=== PATIENT | male | born 1965 | race Caucasian/White ===

== ENCOUNTER 2016-12-10 06:39 | Outpatient (CLI) | payer OTHER ==
[~2016-12-10] VITALS: Ht 182.9 cm; Wt 93.2 kg
[2016-12-10] MEDS ORDERED: GLUCOPHAGE500 MG PO (07:09)
[2016-12-10 07:10] LABS: BASOPHILS 0.3 % (0-2); HEMATOCRIT 40.3 % (42.0-54.0); HEMOGLOBIN 13.8 g/dL (13.5-17.5); IMMATURE GRANULOCYTES 0.3 % (0-5); LYMPHOCYTES 45.1 % (15-50); MCH 35.4 pg (26.0-34.0); MCHC 34.2 g/dL (31.0-37.0); MCV 103.3 fL (80.0-100.0); MEAN PLATELET VOLUME 11.5 fL (7.4-10.4); MONOCYTES 9.9 % (2-11); NEUTROPHILS 42.4 % (40-80); PLATELET COUNT 160 10x3/uL (130-400); RDW 13.3 % (11.5-14.5)
[2016-12-10] MEDS ORDERED: HYDROCODONE-APA1 TAB PO (07:10)
[2016-12-10] MEDS ORDERED: LEVOTHYROXINE200 MCG PO (07:10)
[2016-12-10] MEDS ORDERED: AMBIEN10 MG PO (07:10)
[2016-12-10] MEDS ORDERED: CELEXA40 MG PO (07:10)
[2016-12-10 07:14] VITALS: BP 136/83; Ht 182.9 cm; Wt 93.2 kg
[2016-12-10 07:25] LABS: CALC OSMOLALITY 281 mosm/kg (275-300); CALCIUM 8.2 mg/dL (8.5-10.1); CARBON DIOXIDE 28.2 mmol/L (21.0-32.0); CHLORIDE - SERUM 105 mmol/L (98-107); CREATININE - SERUM 1.1 mg/dL (0.6-1.3); GLUCOSE 102 mg/dL (74-106); POTASSIUM - SERUM 4.2 mmol/L (3.5-5.1); SODIUM 140 mmol/L (136-145); UREA NITROGEN 20 mg/dL (7-18); eGFR NON AFRICAN AMERICAN 75 mL/min (90-120)
[2016-12-10 07:26] LABS: APTT 36.5 SECONDS (22.8-39.4); INR 1.01 (0.85-1.17); PROTIME 13.1 SECONDS (11.6-15.0)
--- NOTE | 2016-12-10 10:34 | NUR ---
4658 SEE POST PROCEDURE CHECKLIST OR VITAL SIGNS. AT BEDSIDE.
--- NOTE | 2016-12-10 11:59 | NUR ---
SEE POST PROCEDURE SHEET FOR V/S
== END 2016-12-10 12:37 | disposition home or self-care (01) ==
LOC: D.OPS 06:39 → D.CT 09:00 → D.OPS 09:00
PROVIDERS: Specialist
DX: D46.9 Myelodysplastic syndrome, unspecified (principal); F17.200 Nicotine dependence, unspecified, uncomplicated; E11.9 Type 2 diabetes mellitus without complications; Z01.812 Encounter for preprocedural laboratory examination

== ENCOUNTER → 2017-04-01 17:11 | Outpatient (CLI) | payer OTHER ==
[2016-12-10 07:14] VITALS: BMI 27.8
[~2017-04-01 17:11] MED LIST: AMBIEN10 MG PO; CELEXA40 MG PO; GLUCOPHAGE500 MG PO; HYDROCODONE-APA1 TAB PO; LEVOTHYROXINE200 MCG PO; MOBIC7.5 MG PO; NICODERM C1 PATCH .1 TRANSDERM; ZITHROMAX TRI-500 MG PO
== END | disposition home or self-care (01) ==
LOC: D.CT 17:00
DX: M54.16 Radiculopathy, lumbar region (principal)

== ENCOUNTER 2017-04-01 20:32 | Inpatient (IN) | payer OTHER ==
[~2017-04-01] VITALS: Ht 182.9 cm; Wt 90.9 kg
--- NOTE | ~2017-04-01 | HEMODYNAMI ---
PATIENT:JT LOTT MEDICAL RECORD: [id number] : 67 LOCATION:D.MS [id number] ADMISSION DATE: 04/01/17 Generatedon:04/03/201713:28 Patient name: JT LOTT Patient #: [id number] SSN: DO B: 1965 Date of study: 04/03/2017 Page: Of Hemodynamic Procedure Report Patient Data Patient Demographics Procedure consent was obtained First Name: JT Gender: Male Last Name: KAYLIE : 1965 [facility] Initial: T Age: 51 year(s) Patient #: [id number] Race: Unknown Additional ID: [id number] Contact details Address: [address] [address] State: [place] City: [place] Zip code: [address] Admission Admission Data Admission Date: 04/01/2017 Admission Time: 23:17 Room #: [id number] Weight (lbs.): 200 Weight (kg.): 90.72 Procedure Procedure Types Cath Procedure Peripheral Cath Diagnostic Procedure Cath Peripheral Procedure Description Procedure Date Procedure Date: 04/03/2017 Procedure Start Time: 12:58 Procedure End Time: 13:27 Procedure Staff Name Function Mani Miles MD Performing Physician Breonna Escalante RT Monitor Charles Rey RT Scrub Annabel Noel RN Nurse Breonna Escalante RT Screw Down Procedure Data Cath Procedure Fluoroscopy Diagnostic fluoroscopy Total fluoroscopy Time: 1.9 time: 1.9 min min Diagnostic fluoroscopy Total fluoroscopy dose: 127 dose: 127 mGy mGy Procedure Medications Medication Administration Route Dosage Lidocaine 1% added to field 20 Oxygen NC 3 l/min Heparin Flush Bag added to field 1 bags (1000units/500ml NS) Versed I.V. 1 mg Fentanyl I.V. 50 mcg Versed I.V. 1 mg Fentanyl I.V. 50 mcg Hemodynamics Rest Heart Rate: 58 (bpm) Snapshots Pre Cath Intra NCS Post Cath Vital Signs Time Heart Resp SPO2 etCO2 NIBP (mmHg) Rhythm Pain Sedation Rate (ipm) (%) (mmHg) Status Level (bpm) 12:44:21 57 9 97 151/92(114) NSR 0 (11) 10(A) , No pain 12:48:35 61 12 98 47 157/99(118) NSR 0 (11) 10(A) , No pain 12:52:51 61 12 99 49.2 153/100(120) NSR 0 (11) 10(A) , No pain 12:57:07 61 12 99 48.4 151/100(118) NSR 0 (11) 10(A) , No pain 13:01:23 61 13 99 39.4 156/95(124) NSR 0 (11) 10(A) , No pain 13:05:41 60 12 96 46.2 151/96(118) NSR 0 (11) 10(A) , No pain 13:09:57 65 11 94 43.1 153/108(119) NSR 0 (11) 10(A) , No pain 13:14:13 63 13 93 47.6 170/114(155) NSR 0 (11) 10(A) , No pain 13:18:35 62 14 93 3.7 176/112(132) NSR 0 (11) 10(A) , No pain 13:22:49 62 9 93 20.1 156/96(116) NSR 0 (11) 10(A) , No pain 13:27:03 22.3 149/91(128) NSR 0 (11) 10(A) , No pain Medications Time Medication Route Dose Verified Delivered Reason Notes Effe ctiveness by by 12:44:02 Lidocaine 1% added 20ml Annabel Singleton for local to vial Bert Miles anesthetic field АЛЕКСАНДР ARREOLA 12:44:22 Oxygen NC 3 Annabel Annabel used for l/min Bert Noel RN plastics seasoner operator 12:44:45 Heparin Flush added 1 Annabel Mani used for Bag to bags Bert Miles procedure (1000units/500ml field АЛЕКСАНДР ARREOLA NS) 12:56:42 Versed I.V. 1 mg Mani Jin for Ginger Noel RN sedation 12:56:53 Fentanyl I.V. 50 Mani Annabel for mcg Ginger Noel RN sedation 13:04:27 Versed I.V. 1 mg Mani Jin for Ginger Noel RN sedation 13:04:34 Fentanyl I.V. 50 Mani Annabel for [facility] Ginger Noel RN sedation Procedure Log Time Note 11:21:35 Patient Weight : 200 lbs 12:26:11 Charles Rey RT (R) (CV) sent for patient. Start room use. 12:26:14 Time tracking: Regular hours 12:26:31 Plan of Care:Hemodynamics will remain stable., Cardiac rhythm will remain stable., Comfort level will be maintained., Respiratory function will remain adequate., Patient/ family verbilizes understanding of procedure., Procedure tolerated without complication., Recovers from procedure without complications.. 12:26:37 Patient received from Med/Surg to IR Alert and oriented. Tansferred to table in Prone position. 12:26:39 Correct patient and procedure confirmed by team. 12:26:40 Signed procedure consent form obtained from patient. 12:26:42 ECG and BP/O2 sat monitors applied to patient. 12:26:44 Full Disclosure recording started 12:26:45 - 12:26:49 H&P Date Dictated: 04/03/2017 Within 30 days and on chart.. 12:26:51 Pre-procedure instructions explained to patient. 12:26:51 Pre-op teaching completed and patient verbalized understanding. 12:26:53 Family in waiting room. 12:26:55 Patient NPO since Midnight. 12:27:02 Is the patient allergic to Iodine/contrast media? No. 12:27:04 Is patient on blood thinner?No 12:27:05 Patient diabetic? Yes. 12:27:08 If diabetic: On Metformin? Yes 12:27:21 If on Metformin: Last Dose? 03/31/2017 12:27:25 - 12::25 ----Pre-sedation anethsthesia assessment.---- 12::29 Previous problem with sedation/anesthesia? No ? 12::30 Snore? Yes 12:27:33 Sleep apnea? No 12:27:35 Deviated septum? No 12:27:36 Opens mouth fully? Yes 12:27:38 Sticks out tongue? Yes 12:27:46 Airway obstruction? No ? 12::51 Dentures? No ? 12:28:03 Patient pain scale 0/10 no pain. 12:28:13 IV patent on arrival in right forearm with 0.9% NaCl at [facility]. 12:43:16 Vital chart was started 12:43:17 Baseline sample Acquired. 12:43:22 - 12:43:35 Use device set IR Diagnostic 12:43:37 Sterile Angiographic Pack opened to sterile field. 12:43:38 Bag Decanter (2002) opened to sterile field. 12:44:02 Lidocaine 1% 20ml vial added to field was administered by Mani haley MD; for local anesthetic; 12:44:22 Oxygen 3 l/min NC was administered by Annabel Noel RN; used for procedure; 12:44:45 Heparin Flush Bag (1000units/500ml NS) 1 bags added to field was administered by Mani Miles MD; used for procedure; 12:55:31 Physician arrived 12:56:42 Versed 1 mg I.V. was administered by Annabel Noel RN; for sedation; 12:56:53 Fentanyl 50 mcg I.V. was administered by Annabel Noel RN; for sedation ; 12:57:49 --------ALL STOP TIME OUT------ 12:57:49 Final Timeout: patient, procedure, and site verified with staff and physician. All members of the team are in agreement. 12:58:00 Sedation plan: IV Moderate Sedation Medication:Versed, Fentanyl 12:58:08 Procedure started. 12:58:24 Local anesthetic to Lumbar area with Lidocaine 1% by Mani Miles MD.INITIAL ACCESS ONLY 13:04:27 Versed 1 mg I.V. was administered by Annabel Noel RN; for sedation; 13:04:34 Fentanyl 50 mcg I.V. was administered by Annabel Noel RN; for sedation ; 13:21:30 Procedure ended.(Physican Out) 13:25:27 Fluoroscopy time 01.90 minutes. 13:25:33 Fluoroscopy dose: 127 mGy 13:25:33 Flurop Dose total: 127 13:25:35 Sharps counted by scrub and verified 13:27:21 Procedure and supply charges have been captured, reviewed, submitted an d are correct. 13:27:28 Report given to Med/Surg. 13:27:34 Patient transfered to Med/Surg with Bed. 13:27:39 Procedure ended. 13:27:39 Full Disclosure recording stopped 13:27:41 End room use (Document Last) 13:28:06 Vital chart was stopped Device Usage Item Name Manufacture Quantity Catalog Hospital Part Current Minimal Lot# / Number Charge Number Stock Stock Serial# Code Sterile Cardinal 1 [id number] Angiographic Health Pack Bag Decanter Microtek 1 [id number] () DJZ. Signature Audit Tully Stage Time Signature Unsigned Intra-Procedure 04/03/2017 Breonna Escalante 1:28:01 PM RT(R) Signatures Monitor : Breonna Escalante RT Signature : Date : Time : [id number] [place] [address]
[~2017-04-01 20:32] MED LIST changes: -MOBIC7.5 MG PO; -NICODERM C1 PATCH .1 TRANSDERM; -ZITHROMAX TRI-500 MG PO
[2017-04-01 21:14] LABS: HEMATOCRIT 38.8 % (42.0-54.0); HEMOGLOBIN 13.3 g/dL (13.5-17.5); MCH 35.7 pg (26.0-34.0); MCHC 34.3 g/dL (31.0-37.0); MEAN PLATELET VOLUME 11.3 fL (7.4-10.4); PLATELET COUNT 167 10x3/uL (130-400); RBC 3.73 10x6/uL (4.20-6.10); RDW 13.5 % (11.5-14.5); WBC 3.7 10x3/uL (4.8-10.8)
[2017-04-01 21:24] LABS: ALBUMIN 3.7 g/dL (3.4-5.0); ALKALINE PHOSPHATASE 69 U/L (46-116); ALT (SGPT) 17 U/L (10-68); BILIRUBIN - TOTAL 0.52 mg/dL (0.2-1.3); CALC OSMOLALITY 278 mosm/kg (275-300); CALCIUM 8.3 mg/dL (8.5-10.1); CARBON DIOXIDE 29.7 mmol/L (21.0-32.0); CHLORIDE - SERUM 104 mmol/L (98-107); GLUCOSE 94 mg/dL (74-106); POTASSIUM - SERUM 3.9 mmol/L (3.5-5.1); PROTEIN - SERUM 6.5 g/dL (6.4-8.2); SODIUM 139 mmol/L (136-145); UREA NITROGEN 14 mg/dL (7-18); eGFR NON AFRICAN AMERICAN 84 mL/min (90-120)
[2017-04-01 21:31] LABS: APPEARANCE CLEAR (CLEAR); COLOR YELLOW (YELLOW); GLUCOSE NEGATIVE (NEGATIVE); KETONE NEGATIVE (NEGATIVE); NITRITE NEGATIVE (NEGATIVE); PROTEIN NEGATIVE (NEGATIVE); UROBILINOGEN NORMAL (NORMAL)
[2017-04-01 21:32] LABS: BILIRUBIN NEGATIVE (NEGATIVE)
[2017-04-01 22:32] LABS: ERYTHROCYTE SEDIMENTATION RATE 0 mm/hr (0-20)
[2017-04-01 22:34] LABS: EOSINOPHILS 4 % (0-7); LYMPHOCYTES 68 % (15-50); MONOCYTES 2 % (2-11); NEUTROPHILS 24 % (40-80); PLATELET ESTIMATE NORMAL
[2017-04-02] VITALS (7 sets, daily range): BP systolic 83–159; BP diastolic 50–91; Ht 182.9 cm; Wt 90.9 kg
--- NOTE | 2017-04-02 00:10 | NUR ---
RECEIVED TO FLOOR FROM ER, ORIENTED TO ROOM, CALL LIGHT IN REACH, BED LOWEST POSIITON, WILL CONTINUE TO MONITOR
[2017-04-02] MEDS ORDERED: ZITHROMAX TRI-500 MG PO (00:15)
[2017-04-02] MEDS ORDERED: MOBIC7.5 MG PO (00:16)
--- NOTE | 2017-04-02 07:48 | NUR ---
PT LYING IN BED STATED PAIN IS AT A 10 IN BACK AND GROIN. GAVE PT PRN PAIN MEDS. PT STATED HAD MRI LAST NIGHT IN ER, NO REPORT SEEN ON CHART, CALLED MEDICAL IMAGING SPOKE WITH KEIKO, PRINTING REPORT FOR ME TO ATTACH TO PT CHART. BED IN LOW POSITION, CALL LIGHT IN REACH PT NPO PENDING ORDERS FROM DR GARCIA
[2017-04-02 09:43] LABS: BASOPHILS 0.3 % (0-2); EOSINOPHILS 1.8 % (0-7); HEMATOCRIT 37.5 % (42.0-54.0); HEMOGLOBIN 12.7 g/dL (13.5-17.5); IMMATURE GRANULOCYTES 0.3 % (0-5); LYMPHOCYTES 56.5 % (15-50); MCH 35.3 pg (26.0-34.0); MCHC 33.9 g/dL (31.0-37.0); MCV 104.2 fL (80.0-100.0); MEAN PLATELET VOLUME 11.1 fL (7.4-10.4); MONOCYTES 10.1 % (2-11); PLATELET COUNT 147 10x3/uL (130-400); RDW 13.4 % (11.5-14.5); WBC 3.4 10x3/uL (4.8-10.8)
[2017-04-02 09:59] LABS: ALBUMIN 3.2 g/dL (3.4-5.0); ALKALINE PHOSPHATASE 63 U/L (46-116); ALT (SGPT) 18 U/L (10-68); CALC OSMOLALITY 279 mosm/kg (275-300); CARBON DIOXIDE 29.3 mmol/L (21.0-32.0); CHLORIDE - SERUM 106 mmol/L (98-107); CREATININE - SERUM 0.8 mg/dL (0.6-1.3); GLUCOSE 92 mg/dL (74-106); POTASSIUM - SERUM 4.2 mmol/L (3.5-5.1); PROTEIN - SERUM 5.7 g/dL (6.4-8.2); SODIUM 140 mmol/L (136-145); UREA NITROGEN 15 mg/dL (7-18); eGFR NON AFRICAN AMERICAN > 90 mL/min (90-120)
--- NOTE | 2017-04-02 11:32 | NUR ---
PT COMPLAINS OF EXCRUCIATING PAIN FROM LT LOWER QUADRANT THAT TRAVELS DOWN TO INNER THIGH, BURNING SENSATION, WORSENED YESTERDAY AFTER CONTRAST, ADMINISTERED PRN PAIN MEDS. PT STATED HE DID SEE DR CASTELLANOS ABOUT 4 WEEKS AGO TO SEE IF PAIN WAS COMING FROM NECK AREA AND HAD FORGOTTEN TO MENTION TO WHEN SHE CAME IN THIS MORNING. ADVISED WILL MAKE A NOTE IN CASE I DID NOT SEE WINSTON DUNCAN HAND. NO OTHER NEEDS AT THIS TIME
--- NOTE | 2017-04-02 12:10 | NUR ---
PT RESTING IN ROOM, WAITING FOR LUNCH, DENIES NEEDS.
[2017-04-03] VITALS (11 sets, daily range): BP systolic 120–141; BP diastolic 53–93
--- NOTE | 2017-04-03 04:16 | NUR ---
PT IN BED RETURNING FROM BATHROOM. NO NEEDS ARE VOICED. VISITOR AT BEDSIDE. SIDE RAILS X 2. BED LOW. CALL LIGHT IN REACH.
[2017-04-03 06:16] LABS: BASOPHILS 0 % (0-2); EOSINOPHILS 1.6 % (0-7); HEMATOCRIT 36.1 % (42.0-54.0); HEMOGLOBIN 12.5 g/dL (13.5-17.5); LYMPHOCYTES 46.4 % (15-50); MCH 35.5 pg (26.0-34.0); MCHC 34.6 g/dL (31.0-37.0); MCV 102.6 fL (80.0-100.0); MEAN PLATELET VOLUME 11.4 fL (7.4-10.4); MONOCYTES 10.4 % (2-11); NEUTROPHILS 41.6 % (40-80); PLATELET COUNT 157 10x3/uL (130-400); RBC 3.52 10x6/uL (4.20-6.10); RDW 13.3 % (11.5-14.5); WBC 3.7 10x3/uL (4.8-10.8)
[2017-04-03 06:39] LABS: ALBUMIN 3.3 g/dL (3.4-5.0); ALKALINE PHOSPHATASE 59 U/L (46-116); ALT (SGPT) 15 U/L (10-68); BILIRUBIN - TOTAL 0.58 mg/dL (0.2-1.3); CALC OSMOLALITY 277 mosm/kg (275-300); CALCIUM 7.9 mg/dL (8.5-10.1); CARBON DIOXIDE 30.9 mmol/L (21.0-32.0); CHLORIDE - SERUM 104 mmol/L (98-107); CREATININE - SERUM 0.8 mg/dL (0.6-1.3); GLUCOSE 94 mg/dL (74-106); POTASSIUM - SERUM 4.1 mmol/L (3.5-5.1); PROTEIN - SERUM 5.8 g/dL (6.4-8.2); SODIUM 140 mmol/L (136-145); eGFR NON AFRICAN AMERICAN > 90 mL/min (90-120)
[2017-04-03 07:01] LABS: UREA NITROGEN 11 mg/dL (7-18)
[2017-04-03 07:04] LABS: C-REACTIVE PROTEIN < 0.2 mg/dL (0.0-0.9)
[2017-04-03 07:26] LABS: ERYTHROCYTE SEDIMENTATION RATE 2 mm/hr (0-20)
--- NOTE | 2017-04-03 08:00 | NUR ---
PATIENT ALERT/ORIENT X4. IN ROOM WITH PATIENT. PATIENT USING CALL LIGHT FOR NEEDS. NORMAL SALINE RUNNING AT 75CC/HR. DIALUDID CULINARY INTERNSHIP PUMP FOR PAIN
[2017-04-03 08:04] LABS: INR 1.06 (0.85-1.17); PROTIME 13.4 SECONDS (11.6-15.0)
--- NOTE | 2017-04-03 12:12 | NUR ---
pt seen for lining feller blindstitch note-states pain is currently 6/10-uses manager orange as needed. lungs clear bilat. headed per bed to radiology for disc aspiration. family at bedside
--- NOTE | 2017-04-03 12:50 | NUR ---
PATIENT TAKEN TO RADIOLOGY FOR COMPUTED TOMOGRAPHY GUIDED OF BIOPSY AND CULTURE OF LUMBER THREE/FOUR DISC WITH MODERATE SEDATION.
--- NOTE | 2017-04-03 13:48 | NUR ---
PATIENT RETURNED FROM PROCEEDURE. VITAL SIGNES TAKEN. PATIENT ALERT/ORIENT. DENIES ANY PAIN/DISC AT THIS TIME.
--- NOTE | 2017-04-03 14:21 | NUR ---
VITAL SIGNES WNL. PATIENT IS ON BED REST WITH BRP.
--- NOTE | 2017-04-03 15:10 | NUR ---
Patient Name: JT LOTT Admission Status: ER Accout number: [id number] Admission Date: 04-01-2017 : 1965 Admission Diagnosis:DISCITIS, UNSPECIFIED, LUMBAR REGION Attending: NICO ZAMARRIPA Current LOS: 2 Anticipated DC Date: 04-05-2017 Planned Disposition: Home Primary Insurance: [facility] PPO Discharge Planning Comments: CM MET WITH PATIENT AND GIRLFRIEND (GEOVANNI) FOR DISCHARGE NEEDS AND PLANS. PATIENT STATED THERE ARE NO STEOPS OR STAIRS AT HIS HOME AND HIS GIRLFRIEND WILL DRIVE HIM HOME AT DISCHARGE. PATIENT STATED HE IS INDEPENDENT WITH HIS CARE AND HAS CRUTCHES, SHOWER BENCH, AND GLUCOMETER AT HOME. PATIENTS PCP IS DR. RAE AND USES [facility]. PATIENT IS REFUSING HOME HEALTH AT THIS TIME. CM WILL CONTINUE TO FOLLOW PATIENT WITH D/C NEEDS AND PLANS. PCP [facility]- [phone] GEOVANNI () [phone] Saas Architect: Judit Nichols Is the patient Alert and Oriented? Yes 0 * How many steps to enter\exit or inside your home? 0 0 * PCP DR. RAE 0 * Pharmacy [facility] 0 * Preadmission Environment Home with Family 0 * ADLs Independent 0 * Equipment Crutch Glucometer Shower Chair 0 * List name and contact numbers for known caregivers / representatives who currently or will assist patient after discharge: GEOVANNI () [phone] 0 * Community resources currently utilized None 0 * Additional services required to return to the preadmission environment? Yes 0 * Can the patient safely return to the preadmission environment? Yes 0 * Has this patient been hospitalized within the prior 30 days at any hospital? No 0 Grand Total: 0
[2017-04-04 00:37] VITALS: BP 133/71
[2017-04-04 05:00] VITALS: BP 138/70
[2017-04-04 05:47] LABS: HEMATOCRIT 38.1 % (42.0-54.0); HEMOGLOBIN 13.1 g/dL (13.5-17.5); MCH 35.2 pg (26.0-34.0); MCHC 34.4 g/dL (31.0-37.0); MCV 102.4 fL (80.0-100.0); MEAN PLATELET VOLUME 11.3 fL (7.4-10.4); PLATELET COUNT 152 10x3/uL (130-400); RBC 3.72 10x6/uL (4.20-6.10); RDW 13.2 % (11.5-14.5); WBC 2.9 10x3/uL (4.8-10.8)
[2017-04-04 06:35] LABS: ALBUMIN 3.3 g/dL (3.4-5.0); ALKALINE PHOSPHATASE 78 U/L (46-116); CALCIUM 8.3 mg/dL (8.5-10.1); CARBON DIOXIDE 29.7 mmol/L (21.0-32.0); CHLORIDE - SERUM 104 mmol/L (98-107); CREATININE - SERUM 0.9 mg/dL (0.6-1.3); GLUCOSE 117 mg/dL (74-106); POTASSIUM - SERUM 3.8 mmol/L (3.5-5.1); SODIUM 139 mmol/L (136-145); eGFR NON AFRICAN AMERICAN > 90 mL/min (90-120)
[2017-04-04 06:36] LABS: ALT (SGPT) 21 U/L (10-68); CALC OSMOLALITY 279 mosm/kg (275-300); UREA NITROGEN 14 mg/dL (7-18)
[2017-04-04 06:39] LABS: ELLIPTOCYTES OCC; EOSINOPHILS 6 % (0-7); LYMPHOCYTES 61 % (15-50); MONOCYTES 7 % (2-11); NEUTROPHILS 22 % (40-80); PLATELET ESTIMATE NORMAL; ROULEAUX OCC
[2017-04-04 08:22] VITALS: BP 160/99
[2017-04-04 11:53] VITALS: BP 127/75
[2017-04-04 16:19] VITALS: BP 147/86
[2017-04-04 20:00] VITALS: BP 166/89
[2017-04-05] VITALS: BP 167/91
[2017-04-05 04:00] VITALS: BP 158/91
[2017-04-05 06:33] LABS: BASOPHILS 0.3 % (0-2); EOSINOPHILS 2.2 % (0-7); IMMATURE GRANULOCYTES 0.6 % (0-5); LYMPHOCYTES 53.3 % (15-50); MCH 34.9 pg (26.0-34.0); MCHC 34.2 g/dL (31.0-37.0); MCV 102.2 fL (80.0-100.0); MEAN PLATELET VOLUME 10.9 fL (7.4-10.4); MONOCYTES 7.4 % (2-11); NEUTROPHILS 36.2 % (40-80); PLATELET COUNT 147 10x3/uL (130-400); RBC 3.72 10x6/uL (4.20-6.10); RDW 13.4 % (11.5-14.5); WBC 3.2 10x3/uL (4.8-10.8)
[2017-04-05 06:55] LABS: ALBUMIN 3.5 g/dL (3.4-5.0); ALKALINE PHOSPHATASE 67 U/L (46-116); ALT (SGPT) 23 U/L (10-68); BILIRUBIN - TOTAL 0.61 mg/dL (0.2-1.3); CALC OSMOLALITY 276 mosm/kg (275-300); CALCIUM 8.3 mg/dL (8.5-10.1); CARBON DIOXIDE 33.3 mmol/L (21.0-32.0); CHLORIDE - SERUM 103 mmol/L (98-107); CREATININE - SERUM 0.9 mg/dL (0.6-1.3); GLUCOSE 99 mg/dL (74-106); PROTEIN - SERUM 6.2 g/dL (6.4-8.2); SODIUM 138 mmol/L (136-145); UREA NITROGEN 15 mg/dL (7-18); eGFR NON AFRICAN AMERICAN > 90 mL/min (90-120)
[2017-04-05 08:18] VITALS: BP 135/84
[2017-04-05 11:40] VITALS: BP 127/83
[2017-04-05] MEDS ORDERED: NICODERM C1 PATCH .1 TRANSDERM (12:38)
[2017-04-05] MEDS ORDERED: HYDROCODONE-APA1 TAB PO (12:41)
--- NOTE | 2017-04-05 13:43 | NUR ---
SPOKE WITH SEE NURSE MESSAGE.
--- NOTE | 2017-04-05 13:52 | NUR ---
CM REASSESSMENT NOTE: PATIENT STATED HE IS DISCHARGING TODAY AND HIS GIRLFRIEND IS DRIVING HIM HOME. PATIENT REFUSED HOME HEALTH AND HAD NO OTHER NEEDS FOR DISCHARGE.
[2017-04-05 14:19] LABS: FUNGUS STAIN Final report (())
[2017-04-05 15:21] LABS: HISTOPLASMA GAL MANNAN AG SER <0.5 (<0.5 ng/mL)
--- NOTE | 2017-04-05 15:50 | NUR ---
D/C IV WITH CATHETER INTACT.
--- NOTE | 2017-04-05 15:59 | NUR ---
DISCHARGE INSTRUCTIONS COMPLETED WITH PATIENT. PATIENT AND VERBALIZED UNDERSTANDING. PATIENT'S STATED "I AM CONCERNED ABOUT HIS NUMBNESS AND TINGLING IN HIS GROIN AREA. I FEEL LIKE NO ONE IS CONCERNED ABOUT IT AND I HAVE BEEN TELLING EVERYONE ABOUT IT THE WHOLE TIME HE HAS BEEN HERE. IT HAS BEEN GOING ON SINCE HE FIRST GOT HERE BEFORE THE BIOPSY." ASKED PATIENT AND HIS IF THEY WOULD LIKE TO TALK TO , THEY SAID YES. CAME OUT OF PATIENT'S ROOM MACKENZIE HENRY AT THE DESK, TOLD HER THE PATIENT WANTS TO TALK TO ABOUT NUMBNESS AND TINGLING IN HIS GROIN, SHE STATED "I ALREADY TALKED TO HIM ABOUT IT. THAT IS NOTHING NEW. HE HAS HAD THE NUMBNESS AND TINGLING IN HIS GROIN THE ENTIRE TIME HE HAS BEEN HERE. AND ARE AWARE OF IT AND THEY THINK IT IS FROM THE DISCITIS. HE IS GOING TO FOLLOW UP WITH NEXT WEEK IN CLINIC." TOLD THE PATIENT AND HIS "MACKENZIE SAID THE DOCTORS ARE AWARE OF THE NUMBNESS AND TINGLING, SHE SAID THEY BELIEVE IT IS FROM THE DISCITIS." THE PATIENT STATED "YEAH, THAT IS WHAT I FIGURED, IT IS FROM THE PRESSURE." I STATED "IF YOUR SYMPTOMS WORSEN OR IF YOU START HAVING CHILLS OR A FEVER BE SURE TO CALL OR , OR COME TO THE ER." THEY VERABLIZED UNDERSTANDING AND AGREED.
--- NOTE | 2017-04-05 16:05 | NUR ---
PATIENT LEFT VIA WHEELCHAIR.
[2017-04-05 16:08] VITALS: BP 141/83
[2017-04-05 16:11] LABS: AFB SPECIMEN PROCESSING Not Indicated (())
[2017-04-09 15:19] LABS: BRUCELLA IGG Negative (Negative); BRUCELLA IGM Negative (Negative)
[2017-05-03 15:20] LABS: FUNGUS MYCOLOGY CULTURE Final report (())
[2017-05-22 11:18] LABS: ACID FAST CULTURE Negative (()); ACID FAST SMEAR Negative (())
== END 2017-04-05 16:00 | disposition home or self-care (01) | DRG 478 ==
LOC: D.ER 20:32 → D.MS 23:17
PROVIDERS: Family Medicine; Radiology Diagnostic Radiology; Student in an Organized Health Care Education/Training Program; ADMIT Family Medicine
PROC: 0Q903ZX Drainage of Lumbar Vertebra, Percutaneous Approach, Diagnostic (ICD-10-PCS; principal; 2017-04-03 12:30)
DX: M46.46 Discitis, unspecified, lumbar region (principal); M46.26 Osteomyelitis of vertebra, lumbar region; E11.65 Type 2 diabetes mellitus with hyperglycemia; F41.8 Other specified anxiety disorders; D46.9 Myelodysplastic syndrome, unspecified

== ENCOUNTER → 2017-05-01 10:37 | Outpatient (CLI) | payer OTHER ==
[2017-04-02 00:56] VITALS: BMI 27.2
[~2017-05-01 10:37] MED LIST changes: +MOBIC7.5 MG PO; +NICODERM C1 PATCH .1 TRANSDERM; +ZITHROMAX TRI-500 MG PO
== END | disposition home or self-care (01) ==
LOC: D.MRI 10:30
DX: M46.26 Osteomyelitis of vertebra, lumbar region (principal)

== ENCOUNTER 2017-12-03 10:39 | Day surgery (SDC) | payer MEDICAID ==
[~2017-12-03] VITALS: Ht 182.9 cm; Wt 87.1 kg
[2017-12-03] VITALS (8 sets, daily range): BP systolic 106–119; BP diastolic 64–78; BMI 26.5; BMI 25.7
--- NOTE | ~2017-12-03 | OP ---
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 POSTOPERATIVE DIAGNOSIS: Left C3-C4 and C4-C5 foraminal stenosis and cervical radiculopathy at left C4 and C5. SURGEON: Brandi Tesfaye MD DESCRIPTION AND TECHNIQUE: After induction of general endotracheal anesthesia, the patient was placed in Rankin head pin and was rolled prone on chest and hip rolls. Neck was prepped and draped in usual sterile fashion. Fluoroscopic x-ray and spinal needle localized to the C3-C4 interspace on the left side. A stab incision was created with #11 blade. Using Bovie cautery, a subperiosteal dissection took place to expose the spinous processes and lamina of C3, C4, and C5 on the left side. Level was confirmed with fluoroscopic x-ray. A foraminotomy, medial facetectomy was carried out with Midas-Marcio drill and microscope illumination at C3-4 and C4-5 on the left. Hypertrophied ligamentum flavum was removed with Cloward rongeurs. This decompressed at the left C4 and C5 nerve roots. The C5 nerve root was compressed ventrally by a calcified osteophyte. This could not be removed posteriorly with #11 blade and pituitary rongeurs. However, the nerve root was felt to be decompressed well. Meticulous hemostasis was maintained throughout the wound. The wound was irrigated with copious amounts of Ancef irrigant solution. The fascia was closed with 2-0 Vicryl suture, the subdermal layer was closed with 3-0 Vicryl suture. Skin was closed with katy. A sterile dressing was applied to the wound. The patient was awakened in good condition, taken to recovery. All counts were reported as correct. Estimated blood loss was minimal. TRANSINT:[id number] Voice Confirmation ID: [id number] DOCUMENT ID: [id number] BRANDI TESFAYE MD at 1707 CC: [id number] DICTATION DATE: 12/03/17 184 GREEN BUILDING DESIGN SPECIALIST: 12/03/172021 [facility] 12/04/[address] [facility] [address] [place] [address]
[2017-12-03 11:16] LABS: CALC OSMOLALITY 284 mosm/kg (275-300); CALCIUM 8.3 mg/dL (8.5-10.1); CARBON DIOXIDE 31.7 mmol/L (21.0-32.0); CHLORIDE - SERUM 106 mmol/L (98-107); CREATININE - SERUM 0.8 mg/dL (0.6-1.3); GLUCOSE 101 mg/dL (74-106); POTASSIUM - SERUM 3.9 mmol/L (3.5-5.1); SODIUM 142 mmol/L (136-145); UREA NITROGEN 17 mg/dL (7-18); eGFR NON AFRICAN AMERICAN > 90 mL/min (90-120)
[2017-12-03 11:17] LABS: HEMATOCRIT 35.3 % (42.0-54.0); HEMOGLOBIN 12.3 g/dL (13.5-17.5); MCH 35.2 pg (26.0-34.0); MCHC 34.8 g/dL (31.0-37.0); MCV 101.1 fL (80.0-100.0); MEAN PLATELET VOLUME 12.4 fL (7.4-10.4); RBC 3.49 10x6/uL (4.20-6.10); RDW 13.8 % (11.5-14.5); WBC 2.6 10x3/uL (4.8-10.8)
[2017-12-04] VITALS (9 sets, daily range): BP systolic 98–108; BP diastolic 57–67; Ht 182.9 cm; Wt 87.1 kg
[2017-12-04 05:00] LABS: CALC OSMOLALITY 281 mosm/kg (275-300); CALCIUM 7.8 mg/dL (8.5-10.1); CARBON DIOXIDE 24.6 mmol/L (21.0-32.0); CHLORIDE - SERUM 107 mmol/L (98-107); GLUCOSE 123 mg/dL (74-106); SODIUM 140 mmol/L (136-145); UREA NITROGEN 18 mg/dL (7-18); eGFR NON AFRICAN AMERICAN 84 mL/min (90-120)
[2017-12-04 05:01] LABS: POTASSIUM - SERUM 4.7 mmol/L (3.5-5.1)
[2018-01-01] MEDS ORDERED: NORCO 10-325 TA1 TAB PO (13:08)
== END 2017-12-04 10:13 | disposition home or self-care (01) ==
LOC: OBSVTIME → D.SDCHOLD 10:39 → D.OPS 10:39 → D.SDCHOLD 10:39 → D.ICU 10:39 → D.SDCHOLD 13:30 → D.ICU 18:38 → D.SDCHOLD 18:38 → OBSVTIME 19:46 → D.OPS 12-04 10:13 → D.ICU 12-04 10:13
PROVIDERS: Anesthesiology; Neurological Surgery
DX: M48.02 Spinal stenosis, cervical region (principal); M54.12 Radiculopathy, cervical region; Z01.812 Encounter for preprocedural laboratory examination

== ENCOUNTER 2018-01-02 05:19 | Day surgery (SDC) | payer MEDICAID ==
[~2018-01-02] VITALS: Ht 182.9 cm; Wt 91.7 kg
[2018-01-02] VITALS (17 sets, daily range): BP systolic 121–140; BP diastolic 67–91; Ht 182.9 cm; Wt 91.7 kg
--- NOTE | ~2018-01-02 | OP ---
PATIENT NAME: JT LOTT MEDICAL RECORD: [id number] :[birth year] LOCATION:[facility].07 ADMISSION DATE: SURGEON: BRANDI TESFAYE MD DATE OF OPERATION: 01/02/2018 PREOPERATIVE DIAGNOSIS: Failed fusion at C5-C6. PROCEDURE: Redo anterior cervical discectomy and fusion at C5-C6, removal of anterior cervical plate and screws at C5-C6 and C6-C7, Zavation anterior cervical plate and screws, Jerri bone stem cells, PEEK interbody cage, removal of osteophytes. SURGEON: Brandi Tesfaye MD DESCRIPTION AND TECHNIQUE: After induction of general endotracheal anesthesia, the patient was positioned supine on the operating table. Neck was prepped and draped in usual sterile fashion. Fluoroscopic x-ray and freer localized the C5-C6, C6-C7 anterior cervical plate and screws. As noted previously one of the screws from the vertebral body of C5 was fractured, but nondisplaced. After induction of general endotracheal anesthesia, a Romulus dissector localized the anterior cervical plate and screws. A transverse skin incision was carried out from the midline to the sternocleidomastoid muscle. The platysma was divided with Bovie cautery. Using blunt and sharp dissection with Metzenbaum scissors, I proceeded in avascular plane medial to the carotid sheath. Following this, the anterior cervical plate was identified. This was dissected free of scar tissue. The screw heads were backed out with a hex head screwdriver. Plate and screws were removed in their entirety except for a fractured screw fragment that was left behind in the C5 vertebral body. [place] distracting pins were placed in the bodies of C5 and C6. The previous discectomy was incised and the scar tissue was removed with pituitary rongeurs and curettes. Endplates were repaired with curettes and the Midas Marcio drill. Posteriorly, scar tissue was removed from the dura. Foraminotomy was carried out on both sides. The dura was decompressed over both neural foramina. A PEEK interbody cage was placed in the C5-C6 interspace under distraction. Prior to this, it was filled with Jerri bone stem cells. A Zavation anterior cervical plate and screws 4-hole plate was used to span the C5-C6 interspace. Two 18 mm screws and two 16-mm screws were placed through the holes in the plate. Locking cams were tightened down over the screw heads. Meticulous hemostasis was maintained throughout the wound. The wound was irrigated with copious amounts of Ancef irrigant solution. The platysma and subdermal layer closed with interrupted 3-0 Vicryl suture. The skin was reapproximated with Prineo skin dressing. The patient was awakened in good condition, taken to recovery. All counts were reported as correct. Estimated blood loss was minimal. TRANSINT:[id number] Voice Confirmation ID: [id number] DOCUMENT ID: [id number] OPERATIVE REPORT [id number] JT LOTT JOHN MD at 1406 CC: [id number] DICTATION DATE: 01/02/18 1042 RECONCILIATION MACHINE OPERATOR: 01/02/18 [address] [place] [address]
[~2018-01-02 05:19] MED LIST changes: +NORCO 10-325 TA1 TAB PO
[2018-01-02 05:35] LABS: HEMATOCRIT 35.5 % (42.0-54.0); HEMOGLOBIN 12.1 g/dL (13.5-17.5); MCHC 34.1 g/dL (31.0-37.0); MCV 102.6 fL (80.0-100.0); MEAN PLATELET VOLUME 11.7 fL (7.4-10.4); RBC 3.46 10x6/uL (4.20-6.10); RDW 14.8 % (11.5-14.5); WBC 3.2 10x3/uL (4.8-10.8)
[2018-01-02 05:51] LABS: CALC OSMOLALITY 281 mosm/kg (275-300); CALCIUM 8.1 mg/dL (8.5-10.1); CARBON DIOXIDE 28.3 mmol/L (21.0-32.0); CHLORIDE - SERUM 104 mmol/L (98-107); GLUCOSE 92 mg/dL (74-106); SODIUM 141 mmol/L (136-145); UREA NITROGEN 16 mg/dL (7-18); eGFR NON AFRICAN AMERICAN 84 mL/min (90-120)
[2018-01-03] VITALS (8 sets, daily range): BP systolic 123–154; BP diastolic 63–82
== END 2018-01-03 14:00 | disposition home or self-care (01) ==
LOC: D.OPS 05:19 → D.CVICU 05:19 → D.OPS 07:30 → D.PAN 07:30 → D.CVICU 11:01 → D.OPS 01-03 14:00 → D.CVICU 01-03 15:06 → D.OPS 01-03 15:06 → D.CVICU 01-03 15:07 → D.OPS 01-03 15:07
PROVIDERS: Anesthesiology
DX: T81.89XA Other complications of procedures, not elsewhere classified, initial encounter (principal); M25.78 Osteophyte, vertebrae; M50.121 Cervical disc disorder at C4-C5 level with radiculopathy; Z01.812 Encounter for preprocedural laboratory examination

== ENCOUNTER → 2018-04-30 09:30 | Outpatient (CLI) | payer MEDICAID ==
[2018-01-02 12:56] VITALS: BMI 27.2
== END | disposition home or self-care (01) ==
LOC: D.MRI 09:30
DX: M54.16 Radiculopathy, lumbar region (principal)

== ENCOUNTER 2019-11-09 17:25 | Emergency (ER) | payer MEDICAID ==
[~2019-11-09] VITALS: Ht 182.9 cm; Wt 80.0 kg
[2019-11-09 17:35] VITALS: Ht 182.9 cm; Wt 80.0 kg
[2019-11-09] MEDS ORDERED: BELBUCA (17:37)
[2019-11-09 18:17] LABS: BILIRUBIN NEGATIVE (NEGATIVE); GLUCOSE NEGATIVE (NEGATIVE); KETONE NEGATIVE (NEGATIVE); NITRITE NEGATIVE (NEGATIVE); SPECIFIC GRAVITY 1.025 (1.005-1.020); UROBILINOGEN NORMAL (NORMAL)
[2019-11-09 18:19] LABS: HEMATOCRIT 30.3 % (42.0-54.0); HEMOGLOBIN 9.6 g/dL (13.5-17.5); MCHC 31.7 g/dL (31.0-37.0); PLATELET COUNT 108 10x3/uL (130-400)
[2019-11-09 18:28] LABS: CALC OSMOLALITY 274 mosm/kg (275-300); CALCIUM 8.4 mg/dL (8.5-10.1); CHLORIDE - SERUM 102 mmol/L (98-107); GLUCOSE 91 mg/dL (74-106); POTASSIUM - SERUM 3.6 mmol/L (3.5-5.1); SODIUM 137 mmol/L (136-145); UREA NITROGEN 15 mg/dL (7-18); eGFR NON AFRICAN AMERICAN 83 mL/min (90-120)
[2019-11-09 18:34] LABS: ALBUMIN 3.8 g/dL (3.4-5.0); ALKALINE PHOSPHATASE 75 U/L (30-120); ALT (SGPT) 15 U/L (10-68); AMYLASE - SERUM 51 U/L (25-115); BILIRUBIN - TOTAL 0.83 mg/dL (0.2-1.3); LIPASE 75 U/L (73-393); PROTEIN - SERUM 6.9 g/dL (6.4-8.2); TROPONIN-I < 0.017 ng/mL (0.000-0.060)
[2019-11-09 19:00] LABS: LYMPHOCYTES 41 % (15-50); NEUTROPHILS 59 % (40-80); PLATELET ESTIMATE DECREASED
[2019-11-09] MEDS ORDERED: CARAFATE1 G PO ×2 (20:48→21:10)
[2019-11-09] MEDS ORDERED: NYSTATIN100000 UN4 PO ×2 (20:48→21:10)
[2019-11-09] MEDS ORDERED: PROTONIX40 MG PO ×2 (20:48→21:10)
[2019-11-09 21:19] VITALS: BP 140/72
== END 2019-11-09 21:19 | disposition home or self-care (01) ==
LOC: D.ER 17:25
PROVIDERS: Family Medicine
DX: R10.13 Epigastric pain (principal); E11.9 Type 2 diabetes mellitus without complications; E07.9 Disorder of thyroid, unspecified; Z79.84 Long term (current) use of oral hypoglycemic drugs

== ENCOUNTER 2019-11-11 08:30 | Outpatient (CLI) | payer MEDICAID ==
[~2019-11-11] VITALS: Ht 182.9 cm; Wt 81.4 kg
[~2019-11-11 08:30] MED LIST changes: +BELBUCA; +CARAFATE1 G PO; +NYSTATIN100000 UN4 PO; +PROTONIX40 MG PO
[2019-11-11 08:48] LABS: BASOPHILS 0.4 % (0-2); EOSINOPHILS 0.8 % (0-7); HEMATOCRIT 31.7 % (42.0-54.0); HEMOGLOBIN 10.2 g/dL (13.5-17.5); LYMPHOCYTES 36.2 % (15-50); MCH 32.1 pg (26.0-34.0); MCHC 32.2 g/dL (31.0-37.0); MCV 99.7 fL (80.0-100.0); MONOCYTES 4.5 % (2-11); NEUTROPHILS 51.1 % (40-80); PLATELET COUNT 119 10x3/uL (130-400); RBC 3.18 10x6/uL (4.20-6.10); RDW 15.7 % (11.5-14.5); WBC 2.4 10x3/uL (4.8-10.8)
[2019-11-11 09:00] LABS: INR 0.99 (0.85-1.17)
[2019-11-11 09:01] LABS: APTT 41.4 SECONDS (22.8-39.4)
[2019-11-11 09:03] LABS: ANION GAP 8.2 mmol/L (8-16); CALCIUM 8.8 mg/dL (8.5-10.1); CARBON DIOXIDE 32.2 mmol/L (21.0-32.0); CREATININE - SERUM 1.1 mg/dL (0.6-1.3); POTASSIUM - SERUM 3.4 mmol/L (3.5-5.1)
[2019-11-11 09:10] VITALS: Ht 182.9 cm; Wt 81.4 kg
[2019-11-11 09:33] LABS: LYMPHOCYTES 35 % (15-50); MONOCYTES 6 % (2-11); NEUTROPHILS 50 % (40-80)
[2019-11-11 09:52] LABS: PLATELET ESTIMATE NORMAL
--- NOTE | 2019-11-11 10:11 | NUR ---
According to the suicide assessment screen the patient scores low and he will not require a 1:1 observation. Provide a suicide resource flyer.
--- NOTE | 2019-11-11 11:44 | NUR ---
1120 PT AWAKE ALERT, DENIES PAIN. HAND SHAKING A LITTLE. RECIEVED FLUIDS. FAMILY AT BEDSIDE. 1140 HAND SHAKES NOTED. PT A DIABETIC AND BS PER FINGER STICK DONE AND PT 102. PT EATING GRAHM CRACKERS AND PEANUT BUTTER. AND PUDDING. ORDERS NOTED
--- NOTE | 2019-11-11 12:57 | NUR ---
1220 IV REMOVED AND INSTRUCTIONS GIVEN. PTS VS WNL. 1225 D/C HOME
== END 2019-11-11 12:25 | disposition home or self-care (01) ==
LOC: D.SP 08:30 → D.CT 11:00 → D.SP 12:25
PROVIDERS: Specialist; ATTEND Internal Medicine Hematology & Oncology
DX: D46.9 Myelodysplastic syndrome, unspecified (principal); E11.9 Type 2 diabetes mellitus without complications; E03.9 Hypothyroidism, unspecified; Z79.84 Long term (current) use of oral hypoglycemic drugs; D70.9 Neutropenia, unspecified; E29.1 Testicular hypofunction

== ENCOUNTER → 2019-12-15 10:45 | Outpatient (CLI) | payer MEDICAID ==
[2019-11-11 09:10] VITALS: BMI 24.3
--- NOTE | ~2019-12-15 | EC ---
PATIENT:JT LOTT DATE OF SERVICE: 12/15/19 SEX: M MEDICAL RECORD: [id number] DATE OF : [birth year] [facility] AGE OF PATIENT: 54 ADMISSION DATE: 12/15/19 REFERRING PHYSICIAN: INTERPRETING PHYSICIAN: MEE CALZADA MD ECHOCARDIOGRAM REPORT ECHO CHARGES 4 ECHO COMPLETE Date: 12/15/19 CLINICAL DIAGNOSIS: DYSPNEA/HEART MURMUR ECHOCARDIOGRAPHIC MEASUREMENTS (adult normal given) AC root (d.<3.7cm) 3.9 cm LV Septum d (<1.2 cm> 1.2 cm Valve Excursion 1.4 cm LV Septum (systole) 1.4 cm Left Atria (s.<4.0cm> 4.1 cm LVPW d(<1.2cm) 1.5 cm RV (d.<2.3cm) 3.4 cm LVPW (sytole) 1.6 cm LV diastole(<5.6CM) 5.9 cm MV E-F(>70mm/sec) cm LV systole 3.9 cm LVOT Diameter 2.2 cm MV exc.(>10mm) cm Est.ejection fraction (50-75%) % DOPPLER: LVIT cm/sec A 53.0 cm/sec E 63.0 cm/sec LA cm/sec RVSP 38 mmHg LVOT 99 cm/sec AOP1/2T m/s Asc. Ao 120 cm/sec RVOT 63 cm/sec RA cm/sec PA 132 cm/sec AV Gradient Peak 5.76 mmHg AV Mean 2.74 mmHg AV Area 3.8 cm MV Gradient Peak 2.32 mmHg MV Mean 0.97 mmHg MV Area cm COMMENTS: Neighborhood Coordinator: 2 EMMA PORTER Vp Biology: 3 Dr. Batista TAPE# PACS Pericardial Effusion N DATE OF SERVICE: Adequate 2D, color flow imaging, spectral Doppler, and M-Mode LVH is present. LV internal dimension upper limits of normal 5.9 cm. LV shows normal wall motion. EF estimated greater than or equal to 55%. Aortic valve is tricuspid. No evidence of stenosis by Doppler interrogation. Left atrium upper limits of normal, mildly dilated at 4.1 cm. Mitral valve shows no prolapse. Trace MR. Right-sided chambers are grossly normal. Trace TR. ECHOCARDIOGRAM REPORT [id number] JT LOTT TRANSINT:[id number] Voice Confirmation ID: [id number] DOCUMENT ID: [id number] MEE CALZADA MD CC: [id number] DICTATION DATE: 12/15/19 160 NURSING HOME MANAGER: 12/15/192043 DEP CLI 12/15/19 [id number] [place] [id number]
== END | disposition home or self-care (01) ==
LOC: D.HCCARDIO 10:45 → D.HCCECHO 11:30
PROVIDERS: ATTEND Internal Medicine Cardiovascular Disease
DX: I20.9 Angina pectoris, unspecified (principal); R06.00 Dyspnea, unspecified; R09.89 Other specified symptoms and signs involving the circulatory and respiratory systems

== ENCOUNTER 2019-12-30 07:41 | Day surgery (SDC) | payer MEDICAID ==
[~2019-12-30] VITALS: Ht 182.9 cm; Wt 82.7 kg
--- NOTE | ~2019-12-30 | OP ---
PATIENT NAME: JT LOTT MEDICAL RECORD: [id number] :[birth year] LOCATION:D[facility] ADMISSION DATE: SURGEON: MEE CALZADA MD DATE OF OPERATION: 12/30/2019 PROCEDURE: Left heart catheterization, selective coronary angiography, right radial approach. CATHETERS: Radial sheath, Robert catheter. The procedure was well tolerated. The patient returned to mejia, sheath removed. TR band was placed. FINDINGS: Left ventriculography in 30-degree ROD view; normal wall motion, normal systolic function. CORONARY ANATOMY: LEFT MAIN: Left main is free of disease. LAD: Free of disease in the diagonal system. CIRCUMFLEX: Free of disease in the marginal system. RIGHT CORONARY ARTERY: Dominant rise PDA, free of disease. IMPRESSION: Normal left ventricular systolic function, normal coronary anatomy. TRANSINT:[id number] Voice Confirmation ID: [id number] DOCUMENT ID: [id number] MEE CALZADA MD CC: [id number] DICTATION DATE: 12/30/19 0943 BEAUTY SHOP MANAGER: 12/30/19 1242 [facility] 12/30/19 [address] [place] [address]
--- NOTE | ~2019-12-30 | HEMODYNAMI ---
PATIENT:JT LOTT MEDICAL RECORD: [id number] : 67 LOCATION:[facility] ADMISSION DATE: 12/30/19 Generatedon:12/30/20199:41 Patient name: JT LOTT Patient #: [id number] SSN: DO B: 1965 Date of study: 12/30/2019 Page: Of Hemodynamic Procedure Report Patient Data Patient Demographics Procedure consent was obtained First Name: JT Gender: Male Last Name: KAYLIE : 1965 Middle Initial: T Age: 54 year(s) Patient #: [id number] Race: Additional ID: [id number] Contact details Address: [address] [place] [address] State: [place] City: [place] Zip code: [address] Past Medical History Allergies Allergen Reaction Date Comments Reported Other 12/30/2019 sulfamethoxazole/trimethoprim allergy Admission Admission Data Admission Date: 12/30/2019 Admission Time: 7:41 Arrival Date: 12/30/2019 Arrival Time: 0:00 Insurance Payor: Private health insurance Height (in.): 72.05 BSA: 2.05 (m2) Height (cm.): 183 BMI: 24.78 (kg/m2) Weight (lbs.): 182.98 Weight (kg.): 83 Lab Results Lab Result Date: 12/30/2019 Lab Result Time: 0:00 Biochemistry Name Units Result Min Max BUN mg/dl 9 --(*---)-- 7 18 Creatinine mg/dl 0.9 --(-*--)-- 0.6 1.3 eGFR ml/min 90 --(*---)-- 90 120 NONAFRICAN CBC Name Units Result Min Max Hematocrit % 32.4 *-(----)-- 42 54 Hemoglobin g/dl 10 *-(----)-- 13.5 17.5 Procedure Procedure Types Cath Procedure Diagnostic Procedure LHC LHC w/Coronaries Sedation Charges Moderate Sedation up to 15 minutes Procedure Description Procedure Date Procedure Date: 12/30/2019 Procedure Start Time: 9:29 Procedure End Time: 9:39 Procedure Staff Name Function Adan Tran MD Performing Physician Areli Richardson RT Monitor Tatiana Penaloza RT Scrub Marvin Richardson RN Nurse Indication Dyspnea Procedure Data Cath Procedure Fluoroscopy Diagnostic fluoroscopy Total fluoroscopy Time: 1.1 time: 1.1 min min Diagnostic fluoroscopy Total fluoroscopy dose: 331 dose: 331 mGy mGy Contrast Material Contrast Material Type Amount (ml) Isovue 300 47 Entry Location Entry Primary Successful Side Size Upsize Upsize Entry Closure Aleman ccessful Closure Location (Fr) 1 (Fr) 2 (Fr) Remarks Device Remarks Radial Right 6 Fr Mechanical artery Short Compression Estimated blood loss: 5 ml Diagnostic catheters Device Type Used For End Catheter Placement DIAGNOSTIC [place] 110cm 5 Procedure Fr catheter ([id number]) Procedure Complications No complications Procedure Medications Medication Administration Route Dosage Oxygen etCO2 Nasal cannula 2 l/min Lidocaine 2% added to field 20 Heparin Flush Bag added to field 2 bags (1000units/500ml NS) 0.9% NaCl 100 ml/hr Radial Cocktail I.A. 1 syringe (Verapamil 2mg/Nitro 400mcg/Heparin 1500units) Versed I.V. 2 mg Fentanyl I.V. 50 mcg Fentanyl I.V. 50 mcg Versed I.V. 1 mg Versed I.V. 1 mg Fentanyl I.V. 50 mcg Hemodynamics Rest BSA: 2.05 (m2) HGB: 10 (g/dl) O2 Consumption: Estimated: 243.52 (ml/min) O2 Cons umption indexed: Estimated:118.79 (ml/min/m) Heart Rate: 70 (bpm) Pressure Samples Time Site Value (mmHg) Purpose Heart Use Rate(bpm) 9:31 LV 117/4,11 Snapshot 79 9:32 AO 93/61(78) Pullback 78 9:32 LV 98/9,15 Pullback 78 Gradients Valve Time Site 1 Site 2 Mean SEP/DFP Peak To Heart Use (mmHg) (sec/min) Peak Rate (mmHg) (bpm) Aortic 9:32 LV AO 2 10 5 78 98/9,15 93/61(78) Calculations Valve P-P Mean Valve Index Valve Source Name Gradient Area Flow (cm2) Aortic 5 2 5 2 Snapshots Pre Cath Intra NCS Post Cath Vital Signs Time Heart Resp SPO2 etCO2 NIBP (mmHg) Rhythm Pain Sedation Rate (ipm) (%) (mmHg) Status Level (bpm) 9:13:46 65 22 100 36.7 135/87(112) NSR 0 (11) 10(A) , No pain 9:18:02 69 23 99 35.3 130/78(106) NSR 0 (11) 10(A) , No pain 9:22:16 69 16 97 30 124/78(99) NSR 0 (11) 10(A) , No pain 9:26:30 70 18 98 35.2 121/74(88) NSR 0 (11) 9(A) , No pain 9:30:42 72 14 98 9.7 122/78(88) NSR 0 (11) 9(A) , No pain 9:34:54 80 22 95 40.5 105/69(82) NSR 0 (11) 10(A) , No pain Medications Time Medication Route Dose Verified Delivered Reason Notes Effectiveness by by 9:12:53 Oxygen etCO2 2 l/min Adan Wong used for Nasal [facility] Richardson RN procedure cannula 9:12:59 Lidocaine 2% added 20ml Adan Arellano for local to vial [facility] anesthetic field MD ARREOLA 9:13:13 Heparin Flush added 2 bags Adan Arellano used for Bag to [facility] procedure (1000units/500ml field MD ARREOLA NS) 9:13:21 0.9% NaCl 100 Adan Wong Per ml/hr [facility] Catar[facility] Richardson RN physician 9:19:09 Versed I.V. 2 mg Adan Wong for sedation [facility] Catar[facility] Richardson RN, MD 9:19:15 Fentanyl I.V. 50 mcg Adan Wong for sedation [facility] Catar[facility] Richardson RN, MD 9:23:49 Fentanyl I.V. 50 mcg Adan Wong for sedation [facility] Catar[facility] Richardson RN, MD 9:28:47 Versed I.V. 1 mg Adan Wong for sedation [facility] Catar[facility] Richardson RN, MD 9:31:00 Versed I.V. 1 mg Adan Wong for sedation [facility] Catarino Richardson RN, MD 9:31:05 Radial Cocktail I.A. 1 Adan Arellano for (Verapamil syringe [facility] vasodilation 2mg/Nitro MD ARREOLA 400mcg/Heparin 1500units) 9:32:57 Fentanyl I.V. 50 mcg Adan Arellano for sedation [facility] Catarino Tran MD, MD Procedure Log Time Note 8:47:31 Informed consent obtained and on chart 8:54:15 Tatiana Penaloza RT(R) sent for patient. Start room use. 8:54:20 Procedure Status Elective Heart Cath (OP). 8:54:23 Time tracking: Regular hours (M-F 7:00 - 5:00) 8:54:48 Plan of Care:Hemodynamics will remain stable., Cardiac rhythm will remain stable., Comfort level will be maintained., Respiratory function will remain adequate., Patient/ family verbilizes understanding of procedure., Procedure tolerated without complication., Recovers from procedure without complications.. 9:00:07 Arrival Date: 12/30/2019 12:00:00 AM 9:00:28 Patient Height : 72.05 inches 9:00:34 Patient Weight : 182.98 lbs 9:00:44 Insurance Payor : Private health insurance 9:01:32 Lab Result : eGFR NONAFRICAN 90 ml/min 9:01:32 Lab Result : Hemoglobin 10 g/dl 9:01:32 Lab Result : BUN 9 mg/dl 9:01:32 Lab Result : Creatinine 0.9 mg/dl 9:01:32 Lab Result : Hematocrit 32.4 % 9:02:40 Patient allergic to Other allergysulfamethoxazole/trimethoprim 9:04:21 Patient diabetic? Yes. 9:04:24 If diabetic: On Metformin? Yes 9:05:12 Patient received from Pre/Post Procedure Room to CCL 1 Alert and oriented. Tansferred to table in Supine position. 9:05:14 Warm blankets applied, and trinity hugger turned on for patient comfort. 9:05:15 Correct patient and procedure confirmed by team. 9:05:15 ECG and BP/O2 sat monitors applied to patient. 9:05:28 H&P Date Dictated: 12/30/2019 H&P Addendum completed by physician on day of procedure. (MUST COMPLETE FOR ALL OUTPATIENTS), New H&P dictated by physician.. 9:05:30 Pre-procedure instructions explained to patient. 9:05:31 Pre-op teaching completed and patient verbalized understanding. 9:05:33 Family in patients room. 9:05:36 Patient NPO since Midnight. 9:05:40 Is the patient allergic to Iodine/contrast media? No. 9:05:44 Was the patient premedicated? Yes 9:05:46 Is patient on blood thinner?No 9:08:14 If on Metformin: Last Dose? 12/27/2019 9:08:18 ----Pre-sedation anethsthesia assessment.---- 9:08:23 Previous problem with sedation/anesthesia? No ? 9:08:27 Snore? Yes 9:08:33 Sleep apnea? No 9:08:37 Deviated septum? Unknown 9:08:40 Opens mouth fully? Yes 9:08:42 Sticks out tongue? Yes 9:08:47 Airway obstruction? No ? 9:08:51 Dentures? No ? 9:08:53 9:09:02 Pre procedure: right dorsailis pedis pulse 2+ Normal; easily identifiable; not easily obliterated 9:09:11 IV patent on arrival in left forearm with 0.9% NaCl at [facility]. 9:12:38 Vital chart was started 9:12:53 Oxygen 2 l/min etCO2 Nasal cannula was administered by Marvin Richardson RN; used for procedure; Verbal order read back and verified. 9:12:59 Lidocaine 2% 20ml vial added to field was administered by Adan Tran MD; for local anesthetic; Verbal order read back and verified. 9:13:13 Heparin Flush Bag (1000units/500ml NS) 2 bags added to field was administered by Adan Tran MD; used for procedure; Verbal order read back and verified. 9:13:21 0.9% NaCl 100 ml/hr was administered by Marvin Richardson RN; Per physician; Verbal order read back and verified. 9:17:20 Lab results completed and on chart. 9:17:27 Baseline sample Acquired. 9:17:32 Rhythm: sinus rhythm 9:17:34 Full Disclosure recording started 9:18:00 Stress Test: yes; abnormal INFERIOR AND APICAL 9:18:07 Right Radial & Right Groin area was prepped with chlora-prep and draped in sterile fashion 9:18:09 Alarms reviewed by RGoldy N. 9:18:10 Sharps counted by scrub and verified by R.N. 9:18:16 Physician arrived 9:18:17 --------ALL STOP TIME OUT------ 9:18:18 Final Timeout: patient, procedure, and site verified with staff and physician. All members of the team are in agreement. 9:18:20 Right Radial & Right Groin site verified by team. 9:18:27 Fire Safety Assessment: A--An alcohol-based skin anteseptic being used preoperatively., C--Open oxygen or nitrous oxide is being used., D--An ESU, laser, or fiber-optic light is being used. 9:18:32 Physical assessment completed. ASA score P 2 - A patient with mild systemic disease as per Adan Tran MD. 9:18:38 1) 90+ Normal kidney functon but urine findings or structural abnormalities or genetic trait point to kidney disease. 9:18:43 Maximum allowable contrast dose (3.7 X eGFR X 0.75)250 ml. 9:18:51 Sedation plan: IV Moderate Sedation Medication:Versed, Fentanyl 9:18:57 Use device set Radial Dx or PCI 9:18:58 ACIST Syringe (99287) opened to sterile field. 9:18:59 Medline Cath Pack ([id number]) opened to sterile field. 9:19:00 Bag Decanter () opened to sterile field. 9:19:01 ACIST Hand Control (57957) opened to sterile field. 9:19:01 ACIST Manifold (50418) opened to sterile field. 9:19:03 MBrace Wrist Support ([id number]) opened to sterile field. 9:19:06 EMERALD Guide Wire (919-521) opened to sterile field. 9:19:07 SHEATH 6FR RAIN ([id number]) opened to sterile field. 9:19:09 Versed 2 mg I.V. was administered by Marvin Richardson RN; for sedation; Verbal order read back and verified. 9:19:15 Fentanyl 50 mcg I.V. was administered by Marvin Richardson RN; for sedation; Verbal order read back and verified. 9:22:43 Risk of Mortality: 0.1 9:22:47 Risk of blood transfusion: 2.4 9:22:51 Risk of CHENCHO: 1.2 9:23:49 Fentanyl 50 mcg I.V. was administered by Marvin Richardson RN; for sedation; Verbal order read back and verified. 9::47 Zero performed for pressure channel P1 9:28:47 Versed 1 mg I.V. was administered by Marvin Richardson RN; for sedation; Verbal order read back and verified. 9:29:03 Procedure started. 9:29:15 Local anesthetic to right radial artery with Lidocaine 2% by Adan Tran MD.INITIAL ACCESS ONLY 9:30:27 A 6 Fr Short sheath was inserted into the Right Radial artery 9:30:49 A DIAGNOSTIC [place] 110cm 5 Fr catheter (900348) was advanced over the wire and used for Procedure. 9:31:00 Versed 1 mg I.V. was administered by Marvin Richardson RN; for sedation; Verbal order read back and verified. 9:31:00 Injector settings: Ml/sec: 5, Volume: 15, 9:31:05 Radial Cocktail (Verapamil 2mg/Nitro 400mcg/Heparin 1500units) 1 syringe I.A. was administered by Adan Tran MD; for vasodilation; Verbal order read back and verified. 9:31:45 LV gram done using ROD 9:32:17 EF : 55 % 9:32:19 LV hemodynamics recorded. 9:32:27 LCA angiography performed. 9:32:39 Injector settings: Ml/sec: 3, Volume: 6, 9:32:57 Fentanyl 50 mcg I.V. was administered by Adan Tran MD; for sedation; Verbal order read back and verified. 9:33:53 RCA angiography performed. 9:33:59 Injector settings: Ml/sec: 3, Volume: 6, 9:34:04 Catheter removed. 9:34:08 ZEPHYR REGULAR TR BAND (523662) opened to sterile field. 9:34:26 Sheath removed intact; hemostasis achieved with Mechanical Compression to the Right Radial artery. 9:34:29 Procedure ended.(Physican Out) 9:35:29 Contrast amount:Isovue 300 47ml. 9:35:38 Fluoroscopy time 01.10 minutes. :35:44 Fluoroscopy dose: 331 mGy 9:35:44 Flurop Dose total: 331 9:35:53 Dose Area Product 31229 mGy/cm. 9:35:59 Maximum allowable dose exceeded? No. 9:36:00 Sharps counted by scrub and verified by R.N. 9:36:03 [place] band inflated with 10cc of air. 9:36:11 Post right radial artery:stable 9:36:16 Post-procedure physical assessment completed. ASA score P 2 - A patient with mild systemic disease as per Adan Tran MD. 9:36:21 Post procedure rhythm: unchanged. 9:36:26 Estimated blood loss: 5 ml 9:36:28 Post procedure instruction explained to patient.Patient verbalizes understanding. 9:36:29 Patient needs reinforcement of post procedure teaching. 9:36:51 Procedure type changed to Cath procedure, Diagnostic procedure, LHC, [facility] w/Coronaries, Sedation Charges, Moderate Sedation up to 15 minutes 9:36:53 Procedure and supply charges have been captured, reviewed, submitted and are correct. 9:37:25 Procedure Complication : No complications 9:37:30 Vital chart was stopped 9:37:32 [facility] Findings: mild to moderate CAD (<70%) 9:37:34 See physician's report for complete and final results. 9:37:37 Report given to Pre/Post Procedure Room. 9:37:41 Patient transfered to Pre/Post Procedure Room with Stretcher. 9:38:03 Indication : Dyspnea 9:39:03 Procedure ended. 9:39:03 Full Disclosure recording stopped 9:39:07 End room use (Document Last) Device Usage Item Name Manufacture Quantity Catalog Hospital Part Current Minima l Lot# / Number Charge Number Stock Stock Serial# Code ACIST Acist 1 20083 [id number] 444165 121934 20 Syringe Medical (56618) Systems Inc Medline Medline 1 [id number] [id number] 79191 118125 5 Cath Pack ([id number]) Bag Microtek 1 653114 28503 313564 5 Decanter Medical Inc. () ACIST Hand Acist 1 15708 444777 318792 460013 5 Control Medical (42840) Systems Inc ACIST Acist 1 63183 657683 868518 366329 5 Manifold Medical (61743) Systems Inc MBrace Advanced 1 140-0250-00 490612 62460 364926 5 Wrist Vascular Support Dynamics ([id number]) EMERALD Cardinal 1 009-959 734593 577208 724648 5 Guide Wire Health (427-131) SHEATH 6FR Cardinal 1 2323856 413265 4589003 526215 5 [facility] (8667335) DIAGNOSTIC Terumo 1 40-7136 182703 525686 098019 5 [place] 110cm 5 Fr catheter (158278) ZEPHYR Cardinal 1 572386 359493 9983544 097314 5 REGULAR TR Health BAND (515494) Signature Audit [place] Stage Time Signature Unsigned Intra-Procedure 12/30/2019 Areli 9:39:51 AM Debra RT(R) (CV) Intra-Procedure 12/30/2019 Marvin Richardson RN 9:40:29 AM Intra-Procedure 12/30/2019 Adan Tran 9:41:00 AM Catarino [place] [id number] [place] [address]
[2019-12-30] MEDS ORDERED: VIAGRA50 MG PO (08:09)
[2019-12-30 08:32] VITALS: BP 131/75; Ht 182.9 cm; Wt 82.7 kg
[2019-12-30 08:34] LABS: BASOPHILS 0 % (0-2); EOSINOPHILS 0 % (0-7); HEMATOCRIT 32.4 % (42.0-54.0); HEMOGLOBIN 10.1 g/dL (13.5-17.5); LYMPHOCYTES 42.7 % (15-50); MCH 32.3 pg (26.0-34.0); MCHC 31.2 g/dL (31.0-37.0); MCV 103.5 fL (80.0-100.0); MONOCYTES 3.3 % (2-11); RBC 3.13 10x6/uL (4.20-6.10)
[2019-12-30 08:36] LABS: PLATELET COUNT 63 10x3/uL (130-400); WBC 1.5 10x3/uL (4.8-10.8)
[2019-12-30 08:50] LABS: ALT (SGPT) 15 U/L (10-68); CALC OSMOLALITY 279 mosm/kg (275-300); CALCIUM 8.2 mg/dL (8.5-10.1); CARBON DIOXIDE 28.2 mmol/L (21.0-32.0); CHLORIDE - SERUM 105 mmol/L (98-107); CHOL - HDL RATIO 2.6 ratio (2.3-4.9); CHOLESTEROL, TOTAL 102 mg/dL (0-200); CREATININE - SERUM 0.9 mg/dL (0.6-1.3); GLUCOSE 96 mg/dL (74-106); HDL CHOLESTEROL 39 mg/dL (32-96); LDL CHOLESTEROL 53 mg/dL (0-100); LDL-HDL RATIO 1.4 ratio (1.5-3.5); SODIUM 141 mmol/L (136-145); TRIGLYCERIDE 53 mg/dL (30-200); UREA NITROGEN 9 mg/dL (7-18); eGFR NON AFRICAN AMERICAN > 90 mL/min (90-120)
[2019-12-30 09:29] LABS: PLATELET ESTIMATE DECREASED
--- NOTE | 2019-12-30 09:50 | NUR ---
PT RECEIVED VIA STRETCHER FROM ROCK LOADER FOR RECOVERY. PT DROWSY BUT VERBALLY AROUSABLE. PT DENIES PAIN OR DISCOMFORT AT THIS TIME. IV PATENT INFUSING VIA ORDERS TO L ARM. ZYPHER BAND AND IMMOBILIZER TO R WRIST/ARM, NO S/S HEMATOMA OR BLEEDING NOTED. ARM PINK AND WARM, CAP REFILL BRISK. PT INSTRUCTED NOT TO USE THAT ARM, HE VERBALIZED UNDERSTANDING. PT PLACED ON CARDIAC MONITORS AND O2 VIA NC AT 2L. HR NSR RATE 66, BP 104/58, RR 16, SAT 95. CALL LIGHT IN REACH. DR DING TO ROOM TALKED WITH REGARDING PROCEDURE RESULTS AND PLAN OF CARE. NO NEW ORDERS RECEIVED.
--- NOTE | 2019-12-30 10:15 | NUR ---
PT RESTING COMFORTABLY. ZBAND AND IMMOBILIZER IN PLACE, NO S/S HEMATOMA OR BLEEDING NOTED. ARM PINK AND WARM, CAP REFILL BRISK. VSS AT PRESENT. CALL LIGHT IN REACH, AT BS.
--- NOTE | 2019-12-30 10:40 | NUR ---
4 CC AIR REMOVED FROM Z BAND, HEMATOMA NOTED AFTER SECONDS AFTER AIR REMOVED. ZBAND REMOVED, MANUAL PRESSURE HELD X 2 MINUTES, ZBAND REAPPLIED WITH 10 CC AIR PLACED. BLEEDING STOPPED AND HEMATOMA RESOLVED. WILL CONTINUE TO MONITOR. PT DENIES PAIN OR NEEDS, COFFEE GIVEN PER REQUEST. CALL LIGHT IN REACH
--- NOTE | 2019-12-30 11:08 | NUR ---
3 CC AIR REMOVED FROM Z BAND, NO BLEEDING OR S/S HEMATOMA NOTED. HOB ELEVATED, PT MORE AWAKE, DRINKING COFFEE.
--- NOTE | 2019-12-30 11:20 | NUR ---
3 MORE CC AIR REMOVED FROM Z BAND, NO BLEEDING OR HEMATOMA NOTED. IV HEPLOCKED, MONITORS REMOVED AND PT AMBULATED TO BR. VOIDING W/O DIFFICULITY. 1130 DISCHARGE INSTRUCTIONS REVIEWED W PT AND , BOTH VERBALIZED UNDERSTANDING. IV REMOVED W CATH INTACT. ZBAND REMOVED, SITE CLEANED AND BANDAGE APPLIED. 2X2 AND SM TEGADERM DRESSING. IMMOBILIZER REPOSITIONED.
--- NOTE | 2019-12-30 11:53 | NUR ---
PT DISCHARGED VIA WC TO WAITING IN PRIVATE VEHICLE. PT HAD ALL BELONGINGS AND DISCHARGE PAPERWORK.
== END 2019-12-30 11:50 | disposition home or self-care (01) ==
LOC: D.CATH 07:41
PROVIDERS: ATTEND Internal Medicine Interventional Cardiology
DX: R55 Syncope and collapse (principal); R42 Dizziness and giddiness; R06.00 Dyspnea, unspecified; R09.89 Other specified symptoms and signs involving the circulatory and respiratory systems; I20.9 Angina pectoris, unspecified; R01.1 Cardiac murmur, unspecified

== ENCOUNTER 2020-06-13 18:20 | Inpatient (IN) | payer MEDICAID ==
[~2020-06-13] VITALS: Ht 182.9 cm; Wt 78.5 kg
[~2020-06-13 18:20] MED LIST changes: +CIPRO500 MG PO; +LUNESTA1 MG PO; +OXYIR5 MG PO; +TRAZODONE HCL50 MG PO; +VIAGRA50 MG PO
[2020-06-13] MEDS ORDERED: LEXAPRO10 MG PO (18:30)
[2020-06-13 18:48] LABS: LYMPHOCYTE ABS# 0.69 10x3/uL (1.32-3.57); MCH 29.3 pg (26.0-34.0); MCHC 32.6 g/dL (31.0-37.0); MCV 89.8 fL (80.0-100.0); RBC 2.15 10x6/uL (4.20-6.10)
[2020-06-13 18:59] LABS: CALC OSMOLALITY 275 mosm/kg (275-300); CALCIUM 8.3 mg/dL (8.5-10.1); CARBON DIOXIDE 28.3 mmol/L (21.0-32.0); CHLORIDE - SERUM 104 mmol/L (98-107); GLUCOSE 99 mg/dL (74-106); POTASSIUM - SERUM 3.9 mmol/L (3.5-5.1); SODIUM 137 mmol/L (136-145); UREA NITROGEN 18 mg/dL (7-18); eGFR NON AFRICAN AMERICAN 83 mL/min (90-120)
[2020-06-13 19:00] VITALS: BP 125/79
[2020-06-13 19:16] LABS: ALBUMIN 3.5 g/dL (3.4-5.0); ALKALINE PHOSPHATASE 75 U/L (30-120); ALT (SGPT) 15 U/L (10-68); BILIRUBIN - TOTAL 0.59 mg/dL (0.2-1.3); CKMB 2.1 U/L (0.0-3.6); CREATINE KINASE 83 UL (21-232); PROTEIN - SERUM 7.1 g/dL (6.4-8.2); TROPONIN-I < 0.017 ng/mL (0.000-0.060)
[2020-06-13 19:43] LABS: WBC 0.8 10x3/uL (4.8-10.8)
[2020-06-13 19:44] LABS: HEMATOCRIT 19.3 % (42.0-54.0); HEMOGLOBIN 6.3 g/dL (13.5-17.5); PLATELET COUNT 17 10x3/uL (130-400)
[2020-06-13 20:06] LABS: LYMPHOCYTES 85 % (15-50); MONOCYTES 5 % (2-11); NEUTROPHILS 5 % (40-80); PLATELET ESTIMATE DECREASED
[2020-06-13 21:15] VITALS: BP 139/76
[2020-06-13 23:28] VITALS: BP 128/79
[2020-06-14] MEDS ORDERED: MOBIC7.5 MG PO ×2 (01:10→01:11)
--- NOTE | 2020-06-14 01:25 | NUR ---
PT C/O STILL WITH SEVERE PAIN IN MOUTH AND HEAD, DESPITE RECEIVING DILAUDID 0.5 ONE HOUR AGO. CALLED [facility] AND RECEIVED ORDER TO INCREASE DILAUDID TO 1 MG IVP Q4HR PRN SEVERE PAIN.
--- NOTE | 2020-06-14 01:39 | NUR ---
GAVE DILAUDID 1 MG PER NEW ORDER. STARTED IV FLUIDS PER ORDER. GAVE COLA, ICE AND COFFEE PER REQUEST. GAVE TYLENOL 650 MG PO FOR HEADACHE. WILL CONTINUE TO MONITOR FOR NEEDS.
[2020-06-14 01:41] VITALS: BP 129/60; BMI 23.1
[2020-06-14 04:39] VITALS: BP 111/67
--- NOTE | 2020-06-14 05:32 | NUR ---
GAVE DILAUDID IVP PER REQUEST FOR PAIN, PER PRN ORDER. WILL MONITOR FOR NEEDS.
[2020-06-14 06:12] LABS: ALBUMIN 2.9 g/dL (3.4-5.0); ALKALINE PHOSPHATASE 67 U/L (30-120); ALT (SGPT) 13 U/L (10-68); BILIRUBIN - TOTAL 0.47 mg/dL (0.2-1.3); CALC OSMOLALITY 279 mosm/kg (275-300); CALCIUM 8.2 mg/dL (8.5-10.1); CARBON DIOXIDE 30.5 mmol/L (21.0-32.0); CHLORIDE - SERUM 106 mmol/L (98-107); GLUCOSE 83 mg/dL (74-106); POTASSIUM - SERUM 4.2 mmol/L (3.5-5.1); PROTEIN - SERUM 6.1 g/dL (6.4-8.2); SODIUM 140 mmol/L (136-145); UREA NITROGEN 17 mg/dL (7-18); eGFR NON AFRICAN AMERICAN 83 mL/min (90-120)
[2020-06-14 06:15] LABS: APTT 46.8 SECONDS (22.8-39.4); INR 1.26 (0.85-1.17); PROTIME 14.7 SECONDS (11.6-15.0)
--- NOTE | 2020-06-14 06:15 | NUR ---
CALLED PHARMACY TO REQUEST ONCOLOGY MOUTHWASH...WILL BE AVAILABLE IN APPROX 45 MINS.
[2020-06-14 06:39] LABS: EOSINOPHILS 0 % (0-7); LYMPHOCYTE ABS# 0.81 10x3/uL (1.32-3.57); LYMPHOCYTES 83.5 % (15-50); MCH 29.3 pg (26.0-34.0); MCHC 32.5 g/dL (31.0-37.0); MCV 90.1 fL (80.0-100.0); MONOCYTES 0 % (2-11); NEUTROPHIL ABS# 0.15 10x3/uL (1.78-5.38); NEUTROPHILS 15.5 % (40-80); RDW 14.1 % (11.5-14.5)
[2020-06-14 06:40] LABS: HEMATOCRIT 16.3 % (42.0-54.0); HEMOGLOBIN 5.3 g/dL (13.5-17.5); RBC 1.81 10x6/uL (4.20-6.10)
[2020-06-14 06:41] LABS: PLATELET COUNT 14 10x3/uL (130-400)
[2020-06-14 08:48] VITALS: BP 114/67
[2020-06-14 13:14] VITALS: BP 118/69
[2020-06-14 14:18] VITALS: Ht 182.9 cm; Wt 78.5 kg
[2020-06-14 17:46] LABS: HEMATOCRIT 23.4 % (42.0-54.0); HEMOGLOBIN 7.5 g/dL (13.5-17.5)
[2020-06-14 18:05] VITALS: BP 116/58
--- NOTE | 2020-06-14 22:55 | NUR ---
CLAUDE SALAZAR, SALESPERSON BURIAL PLOTS, FOR +BC RESULTS. WILL CONTINUE TO MONITOR
--- NOTE | 2020-06-14 23:01 | NUR ---
SHIVAM SALAZAR, NOTIFIED OF +BC. NO NEW ORDERS AT THIS TIME.
--- NOTE | 2020-06-14 23:16 | NUR ---
SHIVAM SALAZAR, CALLED BACK AND WANTED DR. Nikki HUTCHISON TO GIVE HER AN ORDER FOR ANTIBIOTICS. PAGED DR. Nikki HUTCHISON, WAITING ON A RETURN CALL. WILL CONTINUE TO MONITOR
--- NOTE | 2020-06-14 23:26 | NUR ---
PAGED Nikki RICARDO VIA ANSWERING SERVICE AGAIN. WAITING ON RETURN CALL. WILL COTNINUE TO MONITOR
[2020-06-15 00:57] VITALS: BP 102/50
[2020-06-15 04:49] VITALS: BP 113/74
[2020-06-15 05:39] LABS: BILIRUBIN NEGATIVE (NEGATIVE); KETONE NEGATIVE (NEGATIVE); NITRITE NEGATIVE (NEGATIVE); UROBILINOGEN NORMAL mg/dL (< 2)
[2020-06-15 07:56] LABS: ALBUMIN 2.8 g/dL (3.4-5.0); ALKALINE PHOSPHATASE 67 U/L (30-120); ALT (SGPT) 11 U/L (10-68); BILIRUBIN - TOTAL 0.92 mg/dL (0.2-1.3); CALC OSMOLALITY 280 mosm/kg (275-300); CARBON DIOXIDE 28.4 mmol/L (21.0-32.0); CHLORIDE - SERUM 107 mmol/L (98-107); CREATININE - SERUM 0.9 mg/dL (0.6-1.3); GLUCOSE 102 mg/dL (74-106); MAGNESIUM - SERUM 1.9 mg/dL (1.8-2.4); POTASSIUM - SERUM 3.7 mmol/L (3.5-5.1); PROTEIN - SERUM 5.8 g/dL (6.4-8.2); SODIUM 141 mmol/L (136-145); UREA NITROGEN 13 mg/dL (7-18); eGFR NON AFRICAN AMERICAN > 90 mL/min (90-120)
[2020-06-15 08:02] LABS: HEMATOCRIT 21.2 % (42.0-54.0); LYMPHOCYTE ABS# 0.29 10x3/uL (1.32-3.57); MCH 28.9 pg (26.0-34.0); NEUTROPHIL ABS# 0.07 10x3/uL (1.78-5.38); RDW 14.7 % (11.5-14.5)
[2020-06-15 08:04] LABS: MCV 87.6 fL (80.0-100.0); PLATELET COUNT 13 10x3/uL (130-400); RBC 2.42 10x6/uL (4.20-6.10); WBC 0.4 10x3/uL (4.8-10.8)
--- NOTE | 2020-06-15 09:01 | NUR ---
ALERT AND ORIENTED. ASSESSMENT COMPLETE. DENIES NEEDS. BED LOW. CALL HENRY AND PERSONAL ITEMS IN REACH. WILL CONTINUE TO MONITOR.
[2020-06-15 09:07] VITALS: BP 122/74
--- NOTE | 2020-06-15 10:00 | NUR ---
PATIENT STATES PAIN NOT BEING CONTROLLED BY PRN DILAUDID. YAN BYRD MADE AWARE AND STATES WILL LOOK INTO IT.
[2020-06-15 11:56] LABS: ANISOCYTOSIS OCC; ELLIPTOCYTES 1+; LYMPHOCYTES 64 % (15-50); MONOCYTES 8 % (2-11); NEUTROPHILS 28 % (40-80); PLATELET ESTIMATE DECREASED
[2020-06-15 13:09] VITALS: BP 100/49
--- NOTE | 2020-06-15 15:01 | NUR ---
SPOKE WITH YAN FAN WHO STATES OK FOR PATIENT TO RESTART MORNING MEDICATIONS THAT WERE HELD ON NEXT DOSE.
[2020-06-15 17:22] VITALS: BP 109/58
--- NOTE | 2020-06-15 19:12 | NUR ---
LYING IN BED AWAKE, ALERT, ORIENTED. IN BED W/PT. RESP EVEN AND UNLABORED ON RA. PT IS IN ISO FOR LOW WBC. IVF INFUSING W/O DIFFICULTY TO LEFT FA @ 75CC/HR. PT C/O PAIN--WILL GIVEN PAIN MED. NO FURTHER NEEDS VOICED AT THIS TIME.
--- NOTE | 2020-06-15 19:23 | NUR ---
DILAUDID GIVEN/ORDER, PT TOLERATED ALL WELL. SEE MAR.
[2020-06-15 20:23] VITALS: BP 109/55
[2020-06-16] VITALS: BP 113/67
[2020-06-16 05:18] VITALS: BP 108/60
--- NOTE | 2020-06-16 06:03 | NUR ---
LYING IN BED W/EYES CLOSED, RESP EVEN AND UNLABORED ON RA. AROUSES EASILY TO TACTILE STIMULI. AM MEDS ADMINISTERED/ORDER, PT REQUEST PAIN MED-DILAUDID GIVEN/ORDER SEE MAR. NO FURTHER NEEDS VOICED AT THIS TIME.
[2020-06-16 06:49] LABS: BASOPHILS 0 % (0-2); EOSINOPHILS 0 % (0-7); LYMPHOCYTE ABS# 0.28 10x3/uL (1.32-3.57); LYMPHOCYTES 71.8 % (15-50); MCH 28.4 pg (26.0-34.0); MCHC 32.1 g/dL (31.0-37.0); MCV 88.3 fL (80.0-100.0); MONOCYTES 0 % (2-11); NEUTROPHIL ABS# 0.11 10x3/uL (1.78-5.38); NEUTROPHILS 28.2 % (40-80); RBC 2.22 10x6/uL (4.20-6.10); RDW 14.5 % (11.5-14.5)
[2020-06-16 06:52] LABS: HEMATOCRIT 19.6 % (42.0-54.0); HEMOGLOBIN 6.3 g/dL (13.5-17.5); PLATELET COUNT 8 10x3/uL (130-400); WBC 0.4 10x3/uL (4.8-10.8)
[2020-06-16 07:02] LABS: ALBUMIN 2.6 g/dL (3.4-5.0); ALKALINE PHOSPHATASE 70 U/L (30-120); ALT (SGPT) 11 U/L (10-68); BILIRUBIN - TOTAL 0.37 mg/dL (0.2-1.3); CALC OSMOLALITY 281 mosm/kg (275-300); CALCIUM 7.5 mg/dL (8.5-10.1); CARBON DIOXIDE 27.8 mmol/L (21.0-32.0); CHLORIDE - SERUM 108 mmol/L (98-107); GLUCOSE 104 mg/dL (74-106); MAGNESIUM - SERUM 1.8 mg/dL (1.8-2.4); POTASSIUM - SERUM 3.4 mmol/L (3.5-5.1); PROTEIN - SERUM 5.5 g/dL (6.4-8.2); SODIUM 141 mmol/L (136-145); UREA NITROGEN 14 mg/dL (7-18); eGFR NON AFRICAN AMERICAN 83 mL/min (90-120)
--- NOTE | 2020-06-16 07:31 | NUR ---
ALERT AND ORIENTED. ASSESSMENT COMPLETE. DENIES NEEDS. BED LOW. CALL HENRY AND PERSONAL ITEMS IN REACH. WILL CONTINUE TO MONITOR.
--- NOTE | 2020-06-16 07:43 | NUR ---
SPOKE WITH BLOOD BANK WHO STATES PATIENT GOT IRRADIATED BLOOD LAST BLOOD TRANSFUSION. WANTS TO KNOW IF MD WANTS IRRIATED BLOOD THIS TRANSFUSION. DR HUTCHISON PAGED. WAITING CALL BACK.
[2020-06-16 08:25] VITALS: BP 110/58
--- NOTE | 2020-06-16 09:14 | NUR ---
PHONE CONSENT OBTAINED FROM DAUGHTER IN [employer] WHO IS POA. CONSENT OBTAINED BY TWO NURSES, GARRY VAZQUEZ RN AND TITO FLORES RN.
--- NOTE | 2020-06-16 10:01 | NUR ---
SPOKE WITH EDSON HEREDIA WHO STATES PATIENT DOES NEED IRRADIATED BLOOD. NOTIFIED BLOOD BANK WHO STATES HAS TO GET BLOOD FROM [facility]. STATES WILL CALL WHEN PLATELETS AND BLOOD ARE READY FOR PATIENT.
--- NOTE | 2020-06-16 10:59 | NUR ---
PLATELET TRANSFUSION INITIATED. VITALS STABLE.
--- NOTE | 2020-06-16 11:17 | NUR ---
PLATELETS ALMOST FINISHED TRANSFUSING WHEN PATIENT STATED HAVING EXTREME ITCHING AND BURNING ALL OVER. INFUSION STOPPED AND LINE FLUSHED WITH NORMAL SALINE. TEMP 98.0. HIVES TO RIGHT SIDE. YAN SANDHU NOTIFIED AT DESK AND STATES NURSE HAS TO CALL DR HUTCHISON. SPOKE WITH DR BURT NURSE WHO GAVE BENADRYL ORDER. ORDER PLACED AND ONE TIME BENADRYL GIVEN.
--- NOTE | 2020-06-16 11:29 | NUR ---
PATIENT STATES LIGHT HEADED AFTER ONE TIME BENADRYL. IN ROOM WITH PATIENT MONITORING. STATES NO MORE ITCHING. HIVES STILL PRESENT TO BACK AND LOWER STOMACH BUT DECREASING. NOW STATES EXTREME MOUTH PAIN. PRN ONCOLOGY WASH GIVEN AND WARM RAG GIVEN.
--- NOTE | 2020-06-16 11:41 | NUR ---
STATES FEELING BETTER NOW IN REGARDS TO ITCHING AND BEING LIGHT HEADED. STILL HAVING PAIN IN JAW AND HEADACHE. PRN TYLENOL GIVEN.
[2020-06-16 11:48] VITALS: BP 125/57
--- NOTE | 2020-06-16 12:29 | NUR ---
PATIENT SLEEPING NOW. WILL CONTINUE TO MONITOR.
--- NOTE | 2020-06-16 13:00 | NUR ---
Nutrition follow-up: Pt in neutropenic precautions: WBC: 0.4 Receiving a regular soft diet PO Intake poor due to severe mouth pain; oncology mouthwash is use labs reviewed Wt: 173# Pt is not meeting estimated nutritional needs at this time Interventions: RDN ordered Ensure or Boost with meals; Magic cup with lunch and dinner Pt might benefit from ProcalAmine PPN short-term @ 75 ml/hr to provide a 441 kcal, 54 gm protein if medically feasible. RDN follow-up: 06/20/20
--- NOTE | 2020-06-16 15:05 | NUR ---
ATTEMPTED TO CALL DR HUTCHISON TO SEE IF HE WANTS TO ORDER PREMEDS FOR WHEN PATIENT GETS BLOOD SINCE PATIENT HAD TRANSFUSION REACTION WITH PLATELETS. SAT ON HOLD FOR 25 MINUTES. WILL ATTEMPT TO CALL AGAIN.
--- NOTE | 2020-06-16 15:24 | NUR ---
BLOOD BANK CALLED TO NOTIFY NURSE THAT BLOOD READY FOR PATIENT. NOTIFIED BLOOD BANK THAT STILL WAITING ORDERS FROM DR HUTCHISON AND WILL CALL BACK. ON HOLD NOW WITH DR HUTCHISON'S OFFICE AGAIN.
--- NOTE | 2020-06-16 15:36 | NUR ---
SAT ON HOLD AGAIN WITH DR HUTCHISON'S OFFICE WITHOUT ANSWER. WILL ATTEMPT TO CALL AGAIN.
--- NOTE | 2020-06-16 15:39 | NUR ---
SPOKE WITH DR HUTCHISON'S NURSE. PREMED ORDERS RECEIVED.
[2020-06-16 15:58] VITALS: BP 120/64
--- NOTE | 2020-06-16 16:01 | NUR ---
PREMEDS GIVEN FOR BLOOD TRANSFUSION.
--- NOTE | 2020-06-16 16:30 | NUR ---
BLOOD TRANSFUSION UNIT ONE INITIATED. VITALS STABLE.
--- NOTE | 2020-06-16 18:22 | NUR ---
BLOOD CONTINUES TRANSFUSING. VITALS REMAIN STABLE.
[2020-06-16 20:35] VITALS: BP 150/77
[2020-06-17] VITALS: BP 144/75
[2020-06-17 04:00] VITALS: BP 143/73
[2020-06-17 06:45] LABS: LYMPHOCYTE ABS# 0.22 10x3/uL (1.32-3.57); MCH 29.2 pg (26.0-34.0); MCHC 33.7 g/dL (31.0-37.0); MCV 86.6 fL (80.0-100.0); NEUTROPHIL ABS# 0.31 10x3/uL (1.78-5.38); RDW 13.7 % (11.5-14.5)
[2020-06-17 06:46] LABS: HEMATOCRIT 24.6 % (42.0-54.0); HEMOGLOBIN 8.3 g/dL (13.5-17.5); RBC 2.84 10x6/uL (4.20-6.10)
[2020-06-17 06:49] LABS: PLATELET COUNT 12 10x3/uL (130-400); WBC 0.6 10x3/uL (4.8-10.8)
[2020-06-17 07:03] LABS: ALBUMIN 2.8 g/dL (3.4-5.0); ALKALINE PHOSPHATASE 78 U/L (30-120); ALT (SGPT) 13 U/L (10-68); BILIRUBIN - TOTAL 0.81 mg/dL (0.2-1.3); CALCIUM 8.3 mg/dL (8.5-10.1); CARBON DIOXIDE 24.8 mmol/L (21.0-32.0); CHLORIDE - SERUM 106 mmol/L (98-107); MAGNESIUM - SERUM 1.8 mg/dL (1.8-2.4); PROTEIN - SERUM 5.8 g/dL (6.4-8.2); SODIUM 139 mmol/L (136-145); UREA NITROGEN 15 mg/dL (7-18); eGFR NON AFRICAN AMERICAN 83 mL/min (90-120)
[2020-06-17 07:04] LABS: CALC OSMOLALITY 284 mosm/kg (275-300); GLUCOSE 211 mg/dL (74-106); POTASSIUM - SERUM 4.2 mmol/L (3.5-5.1)
[2020-06-17 07:16] LABS: LYMPHOCYTES 13 % (15-50); NEUTROPHILS 87 % (40-80); PLATELET ESTIMATE DECREASED
--- NOTE | 2020-06-17 07:24 | NUR ---
PATIENT REPORTS PAIN IN MOUTH FROM [facility]. MEDICATED PER JUN. COMPLETED 2 UNITS OF PRBC WITH NO ADVERSE REACTIONS.
[2020-06-17 08:33] VITALS: BP 129/64
[2020-06-17 12:30] VITALS: BP 123/82
[2020-06-17] MEDS ORDERED: CARAFATE1 G/10 ML PO (13:53)
[2020-06-17] MEDS ORDERED: PROTONIX40 MG PO (14:47)
[2020-06-17] MEDS ORDERED: DIFLUCAN100 MG PO (14:47)
--- NOTE | 2020-06-17 14:50 | NUR ---
SPOKE WITH DR HUTCHISON'S OFFICE. THEY REPORT HE MAY STOP [facility]. HAS AN APPT THERE SATURDAY AND WILL RE-EVALUATE THEN.
--- NOTE | 2020-06-17 15:51 | MORECARE ---
CASE MANAGEMENT DISCHARGE SUMMARY PATIENT: JT LOTT UNIT: [id number] ADM DATE: 06/13/20 AGE: 54 : [birth year] SEX: M ROOM/BED: D.2224 AUTHOR: MILLIE REECE PHYSICIAN: REFERRING PHYSICIAN: ALF INGRAM MD DATE OF SERVICE: 06/17/20 Discharge Plan Patient Name: JT LOTT Facility: [facility]:[place] : 1965 Planned Disposition: Home Anticipated Discharge Date: Discharge Date: Expected LOS: Initial Reviewer: [email or web address] Initial Review Date: 06/13/2020 Generated: 06/17/20 4:50 pm Comments DCP- Discharge Planning Updated by [email or web address]: Marianne England on 06/17/20 2:[address] Patient Name: JT LOTT Admission Status: ER Accout number: [id number] Admission Date: 06-13-2020 : 1965 Admission Diagnosis:OTHER SITES OF CANDIDIASIS Attending: ALF INGRAM Current LOS: 4 Anticipated DC Date: Planned Disposition: Home Primary Insurance: [place] [employer] [place] Discharge Planning Comments: CM met with patient at bedside after obtaining verbal consent. CM discussed availability / needs of home health, REHAB and medical equipment. PATIENT SIGNED DECLINATION FOR HOME HEALTH. STATES HE DOES NOT NEED IT AND PLANS TO DC TO HOME WITH . CM TO FOLLOW AND ASSIST NEEDED. Billing Coordinator: Marianne England DCPIA - Discharge Planning Initial Assessment Updated by [email or web address]: Marianne England on 06/17/20 3:45 pm * Is the patient Alert and Oriented? Yes * PCP [facility] * Pharmacy [facility] * Preadmission Environment Home with Family * ADLs Independent * Equipment None * Community resources currently utilized None * Additional services required to return to the preadmission environment? No * Can the patient safely return to the preadmission environment? Yes * Has this patient been hospitalized within the prior 30 days at any hospital? Yes Patient Name: JT LOTT Page [id number] at 1551 All edits/amendments must be made on the electronic document DICTATION DATE: 06/17/20 1550 NEIGHBORHOOD AIDE: HARLEEN 06/17/20 1550 RPT#: [id number] DC DATE: STATUS: ADM IN [facility] [address] [place] [address] END OF REPORT
--- NOTE | 2020-06-20 07:35 | MORECARE ---
CASE MANAGEMENT DISCHARGE SUMMARY PATIENT: JT LOTT UNIT: [id number] ADM DATE: 06/13/20 AGE: 54 : 67 SEX: M ROOM/BED: D.2224 AUTHOR: MILLIE REECE PHYSICIAN: REFERRING PHYSICIAN: ALF INGRAM MD DATE OF SERVICE: 06/20/20 Discharge Plan Patient Name: JT LOTT Facility: [facility]:[place] : 1965 Planned Disposition: Home Anticipated Discharge Date: Discharge Date: 06/17/2020 Expected LOS: Initial Reviewer: [id number] Initial Review Date: 06/13/2020 Generated: 06/20/20 8:34 am Comments DCP- Discharge Planning Updated by [email or web address]: Marianne England on 06/17/20 2:[address] Patient Name: TJ LOTT Admission Status: ER Accout number: [id number] Admission Date: 06-13-2020 : 1965 Admission Diagnosis:OTHER SITES OF CANDIDIASIS Attending: ALF INGRAM Current LOS: 4 Anticipated DC Date: Planned Disposition: Home Primary Insurance: [employer] [place] [employer] [place] Discharge Planning Comments: CM met with patient at bedside after obtaining verbal consent. CM discussed availability / needs of home health, REHAB and medical equipment. PATIENT SIGNED DECLINATION FOR HOME HEALTH. STATES HE DOES NOT NEED IT AND PLANS TO DC TO HOME WITH . CM TO FOLLOW AND ASSIST NEEDED. Aurist: Marianne England DCPIA - Discharge Planning Initial Assessment Updated by [id number]: Marianne England on 06/17/20 3:45 pm * Is the patient Alert and Oriented? Yes * PCP [facility] * Pharmacy [facility] * Preadmission Environment Home with Family * ADLs Independent * Equipment None * Community resources currently utilized None * Additional services required to return to the preadmission environment? No * Can the patient safely return to the preadmission environment? Yes * Has this patient been hospitalized within the prior 30 days at any hospital? Yes Last DP export: 06/17/20 2:50 p Patient Name: JT LOTT Page [id number] at 0735 All edits/amendments must be made on the electronic document DICTATION DATE: 06/20/2034 SURVEY PROJECT MANAGER: HARLEEN 06/20/2034 RPT#: [id number] DC DATE:06/17/20 STATUS: DIS IN [facility] [address] [place] [address] END OF REPORT
== END 2020-06-17 16:18 | disposition home or self-care (01) | DRG 867 ==
LOC: D.ER 18:20 → D.EDHOLD 19:53 → D.MS 19:53
PROVIDERS: Family Medicine; ADMIT Family Medicine; ATTEND Family Medicine
DX: B37.89 Other sites of candidiasis (principal); D61.810 Antineoplastic chemotherapy induced pancytopenia; L03.114 Cellulitis of left upper limb; D46.9 Myelodysplastic syndrome, unspecified; D64.81 Anemia due to antineoplastic chemotherapy; E03.9 Hypothyroidism, unspecified; M19.90 Unspecified osteoarthritis, unspecified site; F41.8 Other specified anxiety disorders; G89.29 Other chronic pain; E11.65 Type 2 diabetes mellitus with hyperglycemia

== ENCOUNTER 2020-08-19 13:35 | Outpatient (CLI) | payer OTHER, MEDICAID ==
[~2020-08-19] VITALS: Ht 182.9 cm; Wt 86.4 kg
[~2020-08-19 13:35] MED LIST changes: +CARAFATE1 G/10 ML PO; +DIFLUCAN100 MG PO; +LEXAPRO10 MG PO
[2020-08-19 14:04] VITALS: Ht 182.9 cm; Wt 86.4 kg
--- NOTE | 2020-08-19 15:55 | NUR ---
1500 IV STARTED, 20 GAUGE CATHLON LEFT HAND X2 ATTEMPTS. 1530 TRANFUSION, UNIT #1 STARTED AT 75 ML/HR FOR 15 MINUTES. 1545 PATIENT RESTING QUETLY WITHOUT CO VOICED, RATE INCREASED TO 200 ML/HR PER INFUSION PUMP 1555 RATE INCREASED TO 250 ML/HR
--- NOTE | 2020-08-19 18:55 | NUR ---
1814 BLOOD INFUSED AND PT HAS INSTRUCTIONS GIVEN AND EXPLAINED. FLUSHED LINE AND REMOVED WITH CATHETER INTACT. DRESSING APPLIED
== END 2020-08-19 18:45 | disposition home or self-care (01) ==
LOC: D.OPS 13:35
PROVIDERS: ATTEND Internal Medicine Hematology & Oncology
DX: D46.9 Myelodysplastic syndrome, unspecified (principal); D63.8 Anemia in other chronic diseases classified elsewhere

== ENCOUNTER 2020-08-29 09:25 | Outpatient (CLI) | payer OTHER, MEDICAID ==
[~2020-08-29] VITALS: Ht 182.9 cm; Wt 88.6 kg
[2020-08-29 10:29] VITALS: BP 106/61; Ht 182.9 cm; Wt 88.6 kg
== END 2020-08-29 11:53 | disposition home or self-care (01) ==
LOC: D.OPS 09:25
PROVIDERS: ATTEND Internal Medicine Hematology & Oncology
DX: D46.9 Myelodysplastic syndrome, unspecified (principal)

== ENCOUNTER 2020-09-05 09:21 | Outpatient (CLI) | payer OTHER, MEDICAID ==
[~2020-09-05] VITALS: Ht 182.9 cm; Wt 86.4 kg
[2020-09-05 13:25] VITALS: BP 101/63; Ht 182.9 cm; Wt 86.4 kg
[2020-09-05] MEDS ORDERED: PERCOCET 10-321 EAC1 PO (13:46)
--- NOTE | 2020-09-05 16:28 | NUR ---
PATIENT HAS NO SIGNS OR SYMPTOMS OF TRANSFUSION REACTION. PIV DC'D WITH TIP INTACT. PATIENT LEAVES DEPARTMENT AMBULATORY
== END 2020-09-05 16:28 | disposition home or self-care (01) ==
LOC: D.OPS 09:21
PROVIDERS: ATTEND Internal Medicine Hematology & Oncology
DX: D61.818 Other pancytopenia (principal)